=== PATIENT | male | born 1985 | race Caucasian/White ===

== ENCOUNTER 2023-09-28 13:01 | Emergency (ER) | payer BC, SELFPAY ==
--- NOTE | ~2023-09-28 | US_ITS ---
EXAMINATION: US VENOUS ULTRASOUND WITH DOPPLER LOWER EXTREMITY, LEFT CLINICAL INFORMATION: Calf pain and swelling COMPARISON: None available. TECHNIQUE: Ultrasound of the deep veins is performed from the hip to the calf with compression sonography and color and pulse Doppler assessment. Spectral analysis with color-flow imaging is performed. Technically difficult examination due to body habitus. FINDINGS: Left common femoral vein is patent. Partially occlusive thrombus identified from the proximal through the mid and distal femoral and popliteal veins. Flow is present in the posterior tibial vein where small amount of nonocclusive thrombus may also be present. Left peroneal vein was not visualized. Right common femoral vein was interrogated without abnormality. Left calf edema documented. No Dallas's cyst. Incidental note of 2.4 x 3.7 x 1.0 cm enlarged left groin lymph node. US/US venous duplex LE LT IMPRESSION: Positive deep venous thrombosis left proximal femoral through popliteal veins. Enlarged left groin lymph node. As the time of this dictation, PSA service contacted to alert referring physician as to findings.
[2023-09-28 13:17] VITALS: BP 122/94; PULSE 112; RESP 18; TEMP 36.5; O2SAT 99; BMI 52.0
--- NOTE | 2023-09-28 13:17 | ED.GENADULT ---
HPI - General Adult General Chief complaint: Extremity Injury, Lower Stated complaint: Possible blood clot (?) - sent by urgent care Time Seen by Provider: 09/28/23 13:46 Source: patient Mode of arrival: ambulatory Limitations: no limitations History of Present Illness HPI narrative: Patient is a 38-year-old male with history of hyperlipidemia, T2 dm diagnosed 3 weeks ago and started on metformin presenting to the emergency department with complaint of left lower leg and ankle swelling which he noted last night and left calf pain which began this morning. Patient reports that he did have some left knee pain several weeks ago while walking around at the [address] which has since resolved. He denies any chest pain or shortness of breath. Denies cigarette smoking but admits to daily marijuana smoking. Denies any recent extended travel. Denies recent surgery or immobilization. Reports calf pain increases with dorsiflexion. Denies any personal or family history of blood clots. MD complaint: Left lower leg pain and swelling Onset (ago): hour(s) Location: left and lower extremity Severity: moderate Quality: aching Pain Consistency: colicky Relieving factors: rest Exacerbating factors: movement Associated symptoms: denies other symptoms Treatments prior to arrival: none Related Data Previous Rx's Medication Instructions Recorded apixaban 5 mg (74 tabs) tablets in 5 mg PO BID dvt #74 ea 09/28/23 a dose pack ([employer] DVT-PE Treat 30D Start) Allergies Allergy/AdvReac Type Severity Reaction Status Date / Time No Known Allergies Allergy Mild NONE Unverified 03/13/20 14:47 Review of Systems Review of Systems: As per HPI. Yes all other systems are reviewed and are negative Constitutional: Constitutional: Reports as per HPI COUNTS INCLUDE 234 BEDS AT THE [facility] Social History Social History Advance Directives: No Advance Directives Information Provided: No Physical Exam ED Vital Signs: Vital Signs - 24 hr 09/28/23 13:17 Temperature 97.7 F Pulse Rate 112 H Respiratory Rate 18 Blood Pressure 122/94 H Pulse Oximetry 99 Oxygen Delivery Method Room Air BMI result Body Mass Index 52.0 Vital signs have been reviewed and appear to be correct. Blood pressure normal. Heart rate slightly tachycardic. Respiratory rate normal. Temperature normal. Oxygen saturation normal. Const General: cooperative, healthy appearing and no acute distress Orientation/consciousness: oriented to person, oriented to place, oriented to time and patient oriented x3 Limitations: no limitations HENMT Head: Yes normocephalic and Yes atraumatic Ears: external ears normal General nose exam: Normal external nose present Face and sinus: Yes face symmetric Mouth: oropharynx normal and moist mucous membranes Throat: Yes uvula midline Eyes Pupils: Equal, round and reactive pupils present Neck Neck: Yes normal visual inspection and Yes supple Resp Effort & Inspection: normal respiratory effort and able to speak in complete sentences Auscultation: clear to auscultation bilaterally Cardio Rate: regular rate Rhythm: regular rhythm Heart sounds: S1 normal heart sound present and S2 normal heart sound present GI Palpation (GI): Soft to palpation and nontender Auscultation: normoactive bowel sounds General: Yes no CVA tenderness Back/Spine/Pelvis Back: no CVA tenderness Skin General skin exam: elasticity normal and turgor normal Neuro General: oriented to person, oriented to place, oriented to time, patient oriented x3, moves all extremities, no focal motor deficits and CN's II-XI intact bilaterally Cranial nerves: Yes Equal, round and reactive pupils present Cognition (Neuro): normal cognition Extrem General: Yes full ROM, Yes no pedal edema and Yes no calf tenderness Left lower extremity: lower leg Details: localized swelling Location: of the distal lower leg; no erythema, no tenderness, no ecchymosis and no unusual warmth and foot (+Homans) Details: vascular exam Details: dorsalis pedis pulse present and posterior tibial pulse present Psych Mental Status: mental status grossly normal Affect: normal affect Thought process: Normal thought process present Course Course Course Narrative: This is an RME: Additional HPI, ROS, PE not included below will be deferred to primary provider. This is a [id number]-male, with a hx of hyperlipidemia and new diagnosis of diabetes, presenting to the emergency department with a complaint of left calf pain and swelling. Patient's girlfriend noticed swelling in his left ankle and calf last night. He woke up this morning with pain in his calf. No CP or SOB. No recent travels, surgeries, hospitalizations. No hx of blood clots in the past. +Homans sign, mild TTP in the left calf. Plan: Labs, US Medical Decision Making Medical Decision Making MDM Narrative: Patient is a 38-year-old male with history of hyperlipidemia, T2 dm diagnosed 3 weeks ago and started on metformin presenting to the emergency department with complaint of left lower leg and ankle swelling which he noted last night and left calf pain which began this morning. On exam patient is awake, A+Ox3, slightly tachycardic, VS otherwise WNL, afebrile, normal neurological exam without focal deficits, physical exam findings as above. Given reported symptoms and physical exam findings, initial differential includes DVT, calf strain. Labs notable for no leukocytosis, renal function within normal limits. Ultrasound notable for positive DVT left femoral through popliteal veins. My interpretation is in agreement with the radiologist's interpretation. Results discussed with patient and all questions answered. Will start patient on Eliquis 10 mg b.i.d. for 7 days, then 5 mg b.i.d.. Will refer to vascular for follow-up. Instructed patient to follow-up with his primary care provider. Return precautions discussed at bedside. Patient verbalized understanding of and agreement with plan. Differential Diagnosis Differential Diagnoses: The differential diagnosis associated with the presentation includes As per [facility] Admission/Observation Consideration of admission/observation: Escalation of care including admission/observation considered Patient would have been admitted to the hospital had their work up had any findings where hospital admission was appropriate and their clinical presentation warranted hospital admission. Lab Data [facility] Lab Attestation statement: I reviewed the patient's lab results. As per [facility]. 09/28/23 15:02 09/28/23 15:02 Labs: Lab Results 09/28/23 Range/Units 15:02 WBC 9.8 (4.8-10.8) X10*3/uL RBC 5.56 (4.60-5.80) X10*6/uL Hgb 15.0 (14.0-18.0) g/dl Hct 46.5 (42.0-52.0) % MCV 83.6 (80.0-98.0) fL MCH 27.0 (27.0-33.0) pg MCHC 32.3 (31.0-36.0) g/dl RDW 12.4 (11.0-16.0) % Plt Count 138 L (160-400) X10*3/uL MPV 11.3 (9.4-12.4) fL Immature Gran % (Auto) 0.3 (0.0-0.4) % Neut % (Auto) 66.0 (45-73) % Lymph % (Auto) 21.6 (20-40) % [place] % (Auto) 10.0 (2-11) % Eos % (Auto) 1.5 (0-4) % Baso % (Auto) 0.6 (0-2) % Lymph # (Auto) 2.1 (1.2-4.9) X10*3/uL [place] # (Auto) 1.0 (0.1-1.2) X10*3/uL Eos # (Auto) 0.2 (0.0-0.4) X10*3/uL Baso # (Auto) 0.1 (0.0-0.2) X10*3/uL Abs Immat Gran (auto) 0.03 (0.00-0.03) X10*3/uL Absolute Neuts (auto) 6.5 (2.0-8.3) x10*3/uL Absolute Nucleated RBC 0.000 (0.0-0.012) X10*3/uL Nucleated RBC % (auto) 0.0 (0.0-0.2) /100WBC PT 13.9 H (11.1-13.3) SEC INR 1.1 (0.9-1.1) APTT 34.0 (26.0-36.8) SEC Sodium 136 (135-145) mmol/L Potassium 4.1 (3.3-5.1) mmol/L Chloride 101 (96-108) mmol/L Carbon Dioxide 26 (22-29) mmol/L Anion Gap 13 (12-20) BUN 9 (9-16) mg/dL Creatinine 0.84 (0.5-1.4) mg/dL Estim Creat Clear Calc 203.0 Estimated GFR > 60 Random Glucose 131 H (60-115) mg/dL Calcium 9.8 (8.4-10.2) mg/dL Total Bilirubin 0.7 (0.0-1.0) mg/dL Direct Bilirubin 0.3 (0.0-0.5) mg/dL AST 21 (5-37) U/L ALT 22 (0-40) U/L Alkaline Phosphatase 87 (39-117) U/L B-Natriuretic Peptide < 10 (<100) pg/mL Total Protein 8.4 H (6.5-8.0) g/dL Albumin 3.8 (3.5-5.0) g/dL Independent Interpretation I performed an independent interpretation of an: Ultrasound Interpretation: +DVT left femoral through popliteal veins Radiology Impression Discussion of test interpretation with radiology: I have reviewed the radiologist's reading. Radiologist Impression: US/US venous duplex LE LT IMPRESSION: Positive deep venous thrombosis left proximal femoral through popliteal veins. Enlarged left groin lymph node. As the time of this dictation, PSA service contacted to alert referring physician as to findings. External Record Review External record reviewed: Inpatient record, Office record and Outpatient record Prescription Management I considered prescription management with: Other Discharge Plan Discharge Clinical Impression: Deep vein thrombosis (DVT) of left lower extremity Patient Disposition: Home, Self-Care Instructions: Apixaban (By mouth), Deep Vein Thrombosis (ED), Blood Thinners (ED), Deep Vein Thrombosis Prevention (ED) Additional Instructions: You were evaluated in the emergency department today for left leg pain and swelling. Your ultrasound showed evidence of a DVT, also known as a blood clot, in your left leg. You are being started on a medication called Eliquis. Please take this medication as prescribed. It is important that you follow-up with your primary care provider as soon as possible. You are also being referred to Dr. Aguero, the vascular doctor, please call his office tomorrow morning to schedule an appointment for follow-up. Return to the emergency department if you develop chest pain, palpitations, shortness of breath, difficulty breathing, change of color to your leg or foot, new weakness, numbness, tingling to your leg or foot or any other concerning symptom. Prescriptions: New Eliquis DVT-PE Treat 30D Start 5 mg (74 tabs) tablets,dose pack 5 mg PO BID Qty: 74 0RF Rx Instructions: 10mg BID x 7 days, then 5mg BID Referrals: Justus Aguero MD [Physician] -
[2023-09-28 15:07] LABS: MANUAL DIFF FLAG NO
[2023-09-28 15:11] LABS: Basophils Absolute Auto 0.1 X10*3/uL (0.0-0.2); Basophils Percent Auto 0.6 % (0-2); Eosinophils Absolute Auto 0.2 X10*3/uL (0.0-0.4); Eosinophils Percent Auto 1.5 % (0-4); Hematocrit 46.5 % (42.0-52.0); Imm Gran Abs Auto 0.03 X10*3/uL (0.00-0.03); Imm Gran Pct Auto 0.3 % (0.0-0.4); Lymphocytes Absolute Auto 2.1 X10*3/uL (1.2-4.9); Lymphocytes Percent Auto 21.6 % (20-40); Mean Corpuscular HGB Conc 32.3 g/dl (31.0-36.0); Mean Corpuscular Volume 83.6 fL (80.0-98.0); Mean Platelet Volume 11.3 fL (9.4-12.4); Neutrophils Absolute Auto 6.5 x10*3/uL (2.0-8.3); Platelet Count 138 X10*3/uL (160-400); Red Blood Count 5.56 X10*6/uL (4.60-5.80); Red Cell Distribution Width 12.4 % (11.0-16.0); White Blood Count 9.8 X10*3/uL (4.8-10.8)
[2023-09-28 15:19] LABS: INTERNATIONAL NORM RATIO 1.1 (0.9-1.1); Prothrombin Time 13.9 SEC (11.1-13.3)
[2023-09-28 15:23] LABS: Alanine Aminotransferase 22 U/L (0-40); Albumin Level 3.8 g/dL (3.5-5.0); Alkaline Phosphatase 87 U/L (39-117); Anion Gap 13 (12-20); Aspartate Amino Transferase 21 U/L (5-37); Bilirubin Direct 0.3 mg/dL (0.0-0.5); Bilirubin Total 0.7 mg/dL (0.0-1.0); Blood Urea Nitrogen 9 mg/dL (9-16); Calcium 9.8 mg/dL (8.4-10.2); Carbon Dioxide 26 mmol/L (22-29); Chloride 101 mmol/L (96-108); Estimated Glomerular Filt Rate > 60; Glucose Random 131 mg/dL (60-115); Potassium 4.1 mmol/L (3.3-5.1); Sodium 136 mmol/L (135-145); Total Protein 8.4 g/dL (6.5-8.0)
[2023-09-28 15:31] LABS: B Type Natriuretic Peptide < 10 pg/mL (<100)
== END 2023-09-28 16:25 | disposition home or self-care (01) ==
PROVIDERS: Physician Assistant Medical; Emergency Provider Emergency Medicine
DX: I82.412 Acute embolism and thrombosis of left femoral vein (principal); I82.432 Acute embolism and thrombosis of left popliteal vein; E11.9 Type 2 diabetes mellitus without complications; Z79.84 Long term (current) use of oral hypoglycemic drugs
CPT/HCPCS: 36415; 80048; 80076; 83880; 85025; 85610; 85730; 93971; 99281; 99284

== ENCOUNTER 2023-12-08 16:09 | Outpatient (AMB) | payer BC, SELFPAY ==
--- NOTE | 2023-12-08 16:55 | MHC.AMDMED ---
Intake Intake Visit Reasons: T2DM Mortician Investigator Required: No Accompanied by: Self / Same As Patient Allergies No Known Allergies Allergy (Mild, Verified 11/30/23 13:41) NONE HPI Comprehensive Diabetes Asmnt Most Recent Diabetes Results: Creatinine 0.84 mg/dL (0.5-1.4) 09/28/23 Blood Urea Nitrogen 9 mg/dL (9-16) 09/28/23 Sodium 136 mmol/L (135-145) 09/28/23 Potassium 4.1 mmol/L (3.3-5.1) 09/28/23 Chloride 101 mmol/L (96-108) 09/28/23 Carbon Dioxide 26 mmol/L (22-29) 09/28/23 Calcium 9.8 mg/dL (8.4-10.2) 09/28/23 AST 21 U/L (5-37) 09/28/23 ALT 22 U/L (0-40) 09/28/23 Total Protein 8.4 g/dL (6.5-8.0) H 09/28/23 Albumin 3.8 g/dL (3.5-5.0) 09/28/23 PFSH Medical History (Updated 11/30/23 @ 14:39 by Ashley Brown PA-C) Elevated homocysteine Right leg DVT Dyslipidemia Uncontrolled type 2 diabetes mellitus with hyperglycemia Family History (Updated 11/30/23 @ 13:48 by Estefania Diop CMA) Father Brain cancer Throat cancer Diabetes Social History (Updated 11/30/23 @ 13:44 by Estefania Diop CMA) Housing: House Housing Other:: 2 family house Patient Tobacco Use Status: Never used Tobacco e-Cigarette/Vaping Use: Never Used Second Hand Smoke Exposure: Yes service: No Current occupational status: employed 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 2= needs review? 3= comprehend keep point? 4= demonstrates understanding/ competent? NC= Not Covered Topics Learning Objective: Initial visit Initial or post srvc Initial or post srvc Initial or post srvc Initial or post srvc Initial or post srvc Post srvc Comments Pre Edu-assessment/plan Outcome or reassess Outcome or reassess Outcome or reassess Outcome or reassess Outcome or reassess Outcome or reassess Diabetes pathophysiology 1 Healthy eating 1 Being active 1 Taking medication 1 Monitoring glucose 1 Acute complication Chronic complicated Lifestyle and healthy coping Diabetes distress in support ?Diabetes pathophysiology: ?Defined diabetes med identify own type of diabetes; list 3 options for treating diabetes Healthy eating: ?Described effect of type, amount and ?timing of food on blood glucose; list 3 methods for planning meal Being active: ?State effect of exercise on blood glucose level Taking medication: ?State effect of diabetes medications on diabetes; name diabetes medications taking, action and side effects Monitoring glucose: ?Identify recommended blood glucose targets and personal target Acute complication: ?List symptoms and treatment of hyper and hypoglycemia, DKA, sick day guidelines and guidelines for severe weather or situations of crisis and diabetes supply manage Chronic complication: ?To find the relationship of blood glucose levels to long-term complications of diabetes in screening and preventative measures Lifestyle and healthy coping: ?Described lifestyle and healthy coping strategies to rule out diabetes self-management Diabetes to stress and support: ?Recognize Diabetes to stress and be able to identified support options Learning objectives: The patient was provided with verbal and written education on the following topics as outlined below. The patient met all learning objectives and was able to verbalize understanding and provide teach back of education topics discussed . The patient was provided with the opportunity to ask questions and all questions were answered. Patient Assessment Assess patient education level/literacy/barriers, patient identified foods on carbohydrate list that are currently in his meal plan Patient questions/concerns patient diagnosed with diabetes approximately 3 months ago, with an A1c of 8.3 %. Patient just recently got Livongo meter, recommended to patient he test twice a day Patient is currently on metformin 1000 mg b.i.d. And patient has taken his 1st shot of Mounjaro 2.5 mg Patient denies GI side effects from either metformin or Mounjaro What is Diabetes? Pathophysiology How the body produces and uses insulin Identify type of DM Risk factors Signs of Diabetes Brief overview of Diabetes Management Monitoring blood sugar Following a meal plan Regular exercise Maintaining a healthy weight Taking medication as needed Members of the care team (PCP, RN, MA, RD, CDE, senior account clerk) Blood glucose monitoring When/how often to test Target blood sugar ranges Introduction to Nutrition Importance of healthy diet in managing DM Diet is personalized to individual preference Review patient?s regular diet/food preferences Who prepares meals/does food shopping/ Dining out?/ Barriers? How diet effects glucose Eating 3 balanced meals a day with small, healthy snacks between meals Review food groups Carbohydrates: What is a carbohydrate/Which food/food groups are considered carbohydrates Effect of carbohydrates on blood glucose Portion sizes Reading food labels Basic carb counting (if applicable per nursing assessment) Plate method Meal planning Recommendations: Follow plate method, consistent carbs and read nutritional labels. Smart Goal: Will identify foods in his diet that contain carbohydrates Educational Materials: The patient was provided with the following written educational materials: Planning Healthy Meals Handout Patient Response to instructions: Comprehension of Instructions: Fair Readiness to make changes: Contemplation How confident they feel about making changes: Positive Portions of this note were created using voice recognition software, please excuse any words or phrases that may have been misinterpreted. Patient Instructions: Include regular daily activity. ADA recommends 30 minutes of exercise 5 days a week. Weight loss talk to PCP or Talent Acquisition Assistant before starting new plan. Test blood sugar as directed; Fasting and 2hpp largest meal. Watch trends in results. Utilize results and to assess how food, physical activity and medications affect blood sugar results. Bring glucometer or CGM to next visit. Be knowledgeable about diabetes medication, its action, side effects, efficacy, toxicity, prescribed dosage, appropriate timing and frequency of administration, effect of missed and delayed doses and instructions for storage, travel and safety. Problem solving techniques to monitor hypo/hyperglycemia episodes and treatments. Reduce risk reduction behaviors, smoking cessation, regular eye, foot and dental examinations. Coding Level of Care Code Est Pt Level 1 (62638) Diagnoses Uncontrolled type 2 diabetes mellitus with hyperglycemia E11.65
== END 2023-12-08 16:57 | disposition home or self-care (01) ==
PROVIDERS: PCP Physician Assistant; Visit Provider Registered Nurse Diabetes Educator
DX: E11.65 Type 2 diabetes mellitus with hyperglycemia (principal)

== ENCOUNTER → 2023-12-08 16:09 | Outpatient (BNVA) | payer BC, SELFPAY | PROVIDERS: PCP Physician Assistant; Visit Provider Registered Nurse Diabetes Educator | DX: E11.65 Type 2 diabetes mellitus with hyperglycemia (principal) | CPT/HCPCS: 99211 ==

== ENCOUNTER → 2023-12-16 09:12 | Outpatient (BNV) | payer BC, SELFPAY | PROVIDERS: PCP Physician Assistant; Referring Provider Physician Assistant; Visit Provider Internal Medicine | DX: I82.401 Acute embolism and thrombosis of unspecified deep veins of right lower extremity (principal) | CPT/HCPCS: 99204; G2211 ==

== ENCOUNTER 2024-01-05 12:48 | Outpatient (AMB) | payer BC, SELFPAY ==
--- NOTE | 2024-01-05 13:00 | A.OFFPC_ITS ---
Vital Signs 01/05/24 13:08 Height 6 ft 1 in Weight 372 lb 6 oz BMI 49.1 BP 104/86 Blood Pressure Location Rt brachial Position Sitting Pulse 75 Pulse Source Pulse Oximeter Pulse Oximetry (%) 96 Oxygen Delivery Method Room Air Intake Visit Reasons: dm f/u Intake Note: Diabetes follow up Bicycle Service Technician Required: No Allergies No Known Allergies Allergy (Mild, Verified 01/05/24 13:03) NONE Medication List - Last Reconciled 01/05/24 by Ashley Brown PA-C apixaban (Eliquis) 5 mg PO BID blood sugar diagnostic (FreeStyle Lite Strips) use daily As directed to check blood glucose blood-glucose meter (FreeStyle Lite Meter kit) Use daily As directed to check blood glucose metformin 1,000 mg PO BID omeprazole 20 mg PO DAILY rosuvastatin (Crestor) 5 mg PO DAILY tirzepatide (Mounjaro) 2.5 mg (0.5 mL) subcut QWEEK 4 weeks Tobacco use date assessed: 11/30/23 Dental Screening Dental Screen Date: 11/30/23 HPI dm f/u HPI Details Patient is a 38-year-old male who presents today for a follow up. He is relatively new to me. Endo: He has a relatively new diagnosis as well of type 2 diabetes. He is on metformin 1000 mg twice a day. At our last visit I started him on Mounjaro 2.5 mg. His A1c today in the office is 6.7. No longer getting blurry vision. Saw the eye doc and states was told to use lubricating eye drops. He states he was told use baby shampoo on eyelids and since starting this he has been feeling fine. No polydipsia or polyuria. No hypoglycemic events. BS have been 97-160. Heme-Onc: Following with Hematology for right leg DVT. 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 Aquilino Hargrove, Xuan Monroe, Leonardo Anaya and colleagues, with an educational wilmar from [employer]. Physical exam (Primary Care) Vital Signs: Last Vital Signs Pulse 75 01/05/24 13:08 BP 104/86 01/05/24 13:08 Pulse Ox 96 01/05/24 13:08 Oxygen Delivery Method Room Air 01/05/24 13:08 BMI result Body Mass Index 49.1 Tobacco/Smoking Status: Tobacco use Status Tobacco use date assessed 11/30/23 01/05/24 13:00 Patient Tobacco Use Status Never used Tobacco 01/05/24 13:00 e-Cigarette/Vaping Use Never Used 01/05/24 13:00 Const Orientation/consciousness: patient oriented x3 Neck Neck: Yes no lymphadenopathy Thyroid: Thyroid normal Carotids: no bruits Resp Auscultation: clear to auscultation bilaterally Cardio Rate: regular rate Rhythm: regular rhythm Heart sounds: S1 normal heart sound present and S2 normal heart sound present Peripheral pulses: dorsalis pedis present Skin General skin exam: no rashes or lesions noted Neuro General: patient oriented x3, gait normal, no focal motor deficits, normal sensation to monofilament and deep tendon reflexes 2+ bilaterally Extrem General: Yes normal to inspection Results Reviewed Results Reviewed: Laboratory Tests 09/28/23 15:02 Sodium 136 Potassium 4.1 Chloride 101 Carbon Dioxide 26 Anion Gap 13 BUN 9 Creatinine 0.84 Estim Creat Clear Calc 203.0 Estimated GFR > 60 Random Glucose 131 H Calcium 9.8 AST 21 ALT 22 Total Protein 8.4 H Assessment and Plan Assessment & Plan (1) Uncontrolled type 2 diabetes mellitus with hyperglycemia: Code(s): E11.65 - Type 2 diabetes mellitus with hyperglycemia Plan: tolerating mounjaro well. increased dosage. continue metformin. (2) Dyslipidemia: Code(s): E78.5 - Hyperlipidemia, unspecified Plan: lipids ordered Medications: New tirzepatide (Mounjaro) 5 mg (0.5 mL) subcut QWEEK 2 mL 3RF Discontinued tirzepatide (Mounjaro) Discontinued Reason: Doctor's Order 2.5 mg (0.5 mL) subcut QWEEK 4 weeks 2 mL 3RF Coding Level of Care Code Est Pt Level 4 (73491) Complex EM visit Add On G2211 Diagnoses Uncontrolled type 2 diabetes mellitus with hyperglycemia E11.65 Dyslipidemia E78.5
[2024-01-05 13:08] VITALS: BP 104/86; PULSE 75; O2SAT 96; BMI 49.1
== END 2024-01-05 13:42 | disposition home or self-care (01) ==
PROVIDERS: PCP Physician Assistant; Visit Provider Physician Assistant
DX: E11.65 Type 2 diabetes mellitus with hyperglycemia (principal); E78.5 Hyperlipidemia, unspecified
CPT/HCPCS: 83036; 99214

== ENCOUNTER 2024-01-09 16:23 | Outpatient (AMB) | payer BC, SELFPAY ==
--- NOTE | 2024-01-09 16:24 | A.OFFVIS_ITS ---
Intake Intake Visit Reasons: 60 min/LVM Boat Captain Required: No Accompanied by: Self / Same As Patient Allergies No Known Allergies Allergy (Mild, Verified 01/05/24 13:03) NONE HPI Comprehensive Diabetes Asmnt Most Recent Diabetes Results: Creatinine 0.84 mg/dL (0.5-1.4) 09/28/23 Blood Urea Nitrogen 9 mg/dL (9-16) 09/28/23 Sodium 136 mmol/L (135-145) 09/28/23 Potassium 4.1 mmol/L (3.3-5.1) 09/28/23 Chloride 101 mmol/L (96-108) 09/28/23 Carbon Dioxide 26 mmol/L (22-29) 09/28/23 Calcium 9.8 mg/dL (8.4-10.2) 09/28/23 AST 21 U/L (5-37) 09/28/23 ALT 22 U/L (0-40) 09/28/23 Total Protein 8.4 g/dL (6.5-8.0) H 09/28/23 Albumin 3.8 g/dL (3.5-5.0) 09/28/23 [facility] Medical History (Updated 12/16/23 @ 09:42 by Leandra Dasilva MD) Elevated homocysteine Right leg DVT Dyslipidemia Uncontrolled type 2 diabetes mellitus with hyperglycemia Family History Father Brain cancer Throat cancer Diabetes Social History (Updated 12/16/23 @ 09:22 by Brock Corbett) Household Members: Significant Other Housing: House Housing Other:: 2 family house Patient Tobacco Use Status: Never used Tobacco e-Cigarette/Vaping Use: Never Used Second Hand Smoke Exposure: Yes Substance Use Type: Marijuana Current occupational status: employed 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 2= needs review? 3= comprehend keep point? 4= demonstrates understanding/ competent? NC= Not Covered Topics Learning Objective: Initial visit Initial or post srvc Initial or post srvc Initial or post srvc Initial or post srvc Initial or post srvc Post srvc Comments Pre Edu-assessment/plan Outcome or reassess Outcome or reassess Outcome or reassess Outcome or reassess Outcome or reassess Outcome or reassess Diabetes pathophysiology 1 3 Healthy eating 1 3 Being active 1 3 Taking medication 1 3 Monitoring glucose 1 3 Acute complication 2 Chronic complicated 2 Lifestyle and healthy coping 2 Diabetes distress in support 2 ?Diabetes pathophysiology: ?Defined diabetes med identify own type of diabetes; list 3 options for treating diabetes Healthy eating: ?Described effect of type, amount and ?timing of food on blood glucose; list 3 methods for planning meal Being active: ?State effect of exercise on blood glucose level Taking medication: ?State effect of diabetes medications on diabetes; name diabetes medications taking, action and side effects Monitoring glucose: ?Identify recommended blood glucose targets and personal target Acute complication: ?List symptoms and treatment of hyper and hypoglycemia, DKA, sick day guidelines and guidelines for severe weather or situations of crisis and diabetes supply manage Chronic complication: ?To find the relationship of blood glucose levels to long- term complications of diabetes in screening and preventative measures Lifestyle and healthy coping: ?Described lifestyle and healthy coping strategies to rule out diabetes self-management Diabetes to stress and support: ?Recognize Diabetes to stress and be able to identified support options Learning objectives: The patient was provided with verbal and written education on the following topics as outlined below. Assess patient education level/literacy/barriers Patient questions/concerns patient's A1c has improved to 6.7% on 01/05/2024 from previous A1c of 8.2% Patient reports he has significantly reduced carbohydrate portions, this has been helped by starting on Mounjaro 5 mg Patient does report after increase in metformin he began to experience frequent diarrhea, reports he has stopped metformin completely he did tell his PCP about stopping this medication The patient met all learning objectives and was able to verbalize understanding and provide teach back of education topics discussed . The patient was provided with the opportunity to ask questions and all questions were answered. Topics covered in today?s session included: Medications (If applicable) * Name of medication? * Dosing/administration instructions? * Mechanism of action? * Potential side effects? * Potential adverse reaction and appropriate treatment? * Review onset, peak, duration Assess for concerns re: insurance coverage, cost, barriers to compliance Insulin/Injectables (If applicable) * Storage/care of insulin?? * Injection sites? * Site rotation? * Onset, peak, duration * Drawing up insulin? * Injecting insulin/other injectables? * Sharps disposal Continuous blood glucose monitoring (if applicable) Hypoglycemia and Hyperglycemia * Signs and symptoms? * Causes?? * Treatment? * Preventing hypoglycemia? * When to seek medical attention * Blood glucose targets and how you feel when your blood glucose is in and out of your target ranges. * Monitoring and knowing your A1C. * What can make blood glucose go up and down and preventing high and low blood glucose. * Review of blood sugar targets in expected goal range and outside of expected goal range. * Problem solving and preventing hyper/hypoglycemia. * Sick day management of diabetes. * Using blood sugar results in decision making process in managing diabetes. ?Patient was receptive to information provided and participated in the discussion. Asked?appropriate questions and demonstrated good understanding of the topics discussed.? ? Educational Materials: The patient was provided with the following written educational materials: Target Goal and hypoglycemia handouts Smart Goal Assessment:? Patient will identify foods in current diet which contain carbohydrate Pt met goal more than 75% New Smart Goal:Pt will increase Physical activity to 10 minutes 5 days a week Patient Response to instructions: Comprehension of Instructions: Good Readiness to make changes:? action How confident they feel about making changes:Positive Portions of this note were created using voice recognition software, please excuse any words or phrases that may have been misinterpreted. 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
== END 2024-01-10 08:07 | disposition home or self-care (01) ==
PROVIDERS: PCP Physician Assistant; Visit Provider Registered Nurse Diabetes Educator
DX: E11.65 Type 2 diabetes mellitus with hyperglycemia (principal)

== ENCOUNTER → 2024-01-09 16:23 | Outpatient (BNVA) | payer BC, SELFPAY | PROVIDERS: PCP Physician Assistant; Visit Provider Registered Nurse Diabetes Educator | DX: E11.65 Type 2 diabetes mellitus with hyperglycemia (principal) | CPT/HCPCS: 99211 ==

== ENCOUNTER 2024-04-23 15:48 | Outpatient (AMB) | payer BC, SELFPAY ==
--- NOTE | 2024-04-23 16:03 | A.OFFVIS_ITS ---
Intake Intake Visit Reasons: DM 60 min-conf Route Cdl Driver Required: No Accompanied by: Self / Same As Patient Allergies No Known Allergies Allergy (Mild, Verified 01/05/24 13:03) NONE HPI Comprehensive Diabetes Asmnt Most Recent Diabetes Results: Creatinine 0.84 mg/dL (0.5-1.4) 09/28/23 Blood Urea Nitrogen 9 mg/dL (9-16) 09/28/23 Sodium 136 mmol/L (135-145) 09/28/23 Potassium 4.1 mmol/L (3.3-5.1) 09/28/23 Chloride 101 mmol/L (96-108) 09/28/23 Carbon Dioxide 26 mmol/L (22-29) 09/28/23 Calcium 9.8 mg/dL (8.4-10.2) 09/28/23 AST 21 U/L (5-37) 09/28/23 ALT 22 U/L (0-40) 09/28/23 Total Protein 8.4 g/dL (6.5-8.0) H 09/28/23 Albumin 3.8 g/dL (3.5-5.0) 09/28/23 [facility] Medical History (Updated 12/16/23 @ 09:42 by Leandra Dasilva MD) Elevated homocysteine Right leg DVT Dyslipidemia Uncontrolled type 2 diabetes mellitus with hyperglycemia Family History Father Brain cancer Throat cancer Diabetes Social History (Updated 12/16/23 @ 09:22 by Brock Corbett) Household Members: Significant Other Housing: House Housing Other:: 2 family house Patient Tobacco Use Status: Never used Tobacco e-Cigarette/Vaping Use: Never Used Second Hand Smoke Exposure: Yes Substance Use Type: Marijuana Current occupational status: employed 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 The patient met all learning objectives and was able to verbalize understanding and provide teach back of education topics discussed . The patient was provided with the opportunity to ask questions and all questions were answered. Patient Assessment Assess patient education level/literacy/barriers Patient questions/concerns, patient reports he has lost approximately 75 lb, since his diagnosis of type 2 diabetes. Reports he has changed physical activity, eating habits Has stopped taking metformin due to nausea Can you continues to take Mounjaro 5 mg weekly, reports he is not interested in increasing dose at this time Instructed patient to discuss with PA at next visit Patient is due for next A1c Exercise Medical clearance Effect of exercise on blood sugar Start slowly and gradually increase pace/duration over time Goal amount of exercise Checking blood glucose/have a source of carbs with you Medications (If applicable) * Name of medication * Dosing/administration instructions * Mechanism of action * Potential side effects * Potential adverse reaction and appropriate treatment * Review onset, peak, duration Assess for concerns re: insurance coverage, cost, barriers to compliance Insulin/Injectables (If applicable) * Storage/care of insulin * Injection sites * Site rotation * Onset, peak, duration * Drawing up insulin * Injecting insulin/other injectables * Sharps disposal Continuous blood glucose monitoring (if applicable) Hypoglycemia and Hyperglycemia * Signs and symptoms * Causes * Treatment * Preventing hypoglycemia * When to seek medical attention Medical alert bracelet Lifestyle * Work * Travel * Stress management * Problem solving Know your goals * A1C * Blood sugar targets * Blood pressure * Cholesterol/LDL Urine microalbumin Smart Goal Assessment: Patient has increased physical activity daily Pt met goal 100% Educational Materials: The patient was provided with the following written educational materials: ADCES 7 Healthy Behaviors Reducing Risks handout Patient Response to instructions: Comprehension of Instructions: very Well Readiness to make changes: action How confident they feel about making changes: positve Letter of completion of diabetes Education program will be sent to referring provider Portions of this note were created using voice recognition software, please excuse any words or phrases that may have been misinterpreted. Patient Instructions: Include regular daily activity. ADA recommends 30 minutes of exercise 5 days a week. Weight loss talk to PCP or Senior Web Applications Developer before starting new plan. Test blood sugar as directed; Fasting and 2hpp largest meal. Watch trends in results. Utilize results and to assess how food, physical activity and medications affect blood sugar results. Bring glucometer or CGM to next visit. Be knowledgeable about diabetes medication, its action, side effects, efficacy, toxicity, prescribed dosage, appropriate timing and frequency of administration, effect of missed and delayed doses and instructions for storage, travel and safety. Problem solving techniques to monitor hypo/hyperglycemia episodes and treatments. Reduce risk reduction behaviors, smoking cessation, regular eye, foot and dental examinations. Coding Level of Care Code Est Pt Level 1 (82863) Diagnoses Uncontrolled type 2 diabetes mellitus with hyperglycemia E11.65
== END 2024-04-23 16:18 | disposition home or self-care (01) ==
LOC: HO.ENCR 15:48
PROVIDERS: PCP Physician Assistant; Visit Provider Registered Nurse Diabetes Educator
DX: E11.65 Type 2 diabetes mellitus with hyperglycemia (principal)

== ENCOUNTER → 2024-04-23 15:48 | Outpatient (BNVA) | payer BC, SELFPAY | PROVIDERS: PCP Physician Assistant; Visit Provider Registered Nurse Diabetes Educator | DX: E11.65 Type 2 diabetes mellitus with hyperglycemia (principal) | CPT/HCPCS: 99211 ==

== ENCOUNTER 2024-04-26 13:42 | Outpatient (AMB) | payer BC, SELFPAY ==
--- NOTE | 2024-04-26 13:51 | MHC.PC.OV ---
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: No Allergies No Known Allergies Allergy (Mild, Verified 04/26/24 14:00) NONE Medication List - Last Reconciled 04/26/24 by Ashley Brown PA-C apixaban (Eliquis) 5 mg PO BID blood sugar diagnostic (FreeStyle Lite Strips) use daily As directed to check blood glucose blood-glucose meter (FreeStyle Lite Meter kit) Use daily As directed to check blood glucose omeprazole 20 mg PO DAILY rosuvastatin (Crestor) 5 mg PO DAILY tirzepatide (Mounjaro) 5 mg (0.5 mL) subcut QWEEK Tobacco use date assessed: 11/30/23 Dental Screening Dental Screen Date: 11/30/23 HPI Rsched from 04/12 -3M Follow Up HPI Details Patient is a 39-year-old male who presents today for a follow up. Endo: He has a relatively new diagnosis as well of type 2 diabetes (within the year). At our last visit I increased his Mounjaro to 5 mg. His A1c today in the office is 5.6. He is doing very well he states. His blood sugars have been around 100 or less. He has lost about 70 lb. He states that since the diagnosis of diabetes and being on Mounjaro he is taking his diet and weight loss very seriously. He is motivated and wants to continue losing weight and get down into the 200s. He is feeling significantly better and more energetic. He does sometimes get a little constipated with the Mounjaro. -he has followed with Ophthalmology -he is intolerant of metformin Heme-Onc: Following with Hematology for right leg DVT. 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 occupational exposures/hazards: No Gender identity: Male Cognitive needs: No Hearing needs: No Vision needs: Yes (glasses) Questionnaire Thrive Questionnaire Date Thrive assessed: 04/26/24 I am a: Patient What is your living situation today?: I have a steady place to live Within the past 12 months, did the food you bought not last and you didn't have the money to get more?: I choose not to answer this question Within the past 12 months, did you worry whether your food would run out before you got money to buy more?: Never true Do you have trouble paying for medicines?: No Do you have trouble getting transportation to medical appointments?: No Do you have trouble paying your heating and electricity bill?: No Do you have trouble taking care of your child, family member or friend?: No Do you have trouble with day-to-day activities such as bathing, preparing meals, shopping, managing finances, etc.?: No Are you currently unemployed and looking for a job?: No Are you interested in more education?: Yes Please select the resources that you would like help with: None Currently or been in a relationship where the following occur: No concerns reported THRIVE Score: 0 AUDIT C Alcohol Use Questionnaire (AUDIT-C) 2. How many drinks containing alcohol do you have on a typical day when you are drinking?: 1 or 2 Total Score: 0 MARIO-7 AMB Questionnaire MARIO-7 Date MARIO - 7 assessed: 11/30/23 Feeling nervous, anxious, or on edge: 1 = Several days Not being able to stop or control worryin = Several days Worrying too much about different things: 1 = Several days Trouble relaxin = Not at all Being so restless that it is hard to sit still: 0 = Not at all Becoming easily annoyed or irritable: 0 = Not at all Feeling afraid as if something awful might happen: 0 = Not at all Total MARIO-7 score (0-4 normal; 5-9 mild; 10-14 moderate; 15-21 severe): 3 Source: Developed by Drs. Aquilino Hargrove, Xuan Monroe, Leonardo Anaya and colleagues, with an educational wilmar from [email or web address] Physical exam (Primary Care) Vital Signs: Last Vital Signs Pulse 90 04/26/24 14:00 BP 108/60 04/26/24 14:00 Pulse Ox 95 04/26/24 14:00 Oxygen Delivery Method Room Air 04/26/24 14:00 BMI result Body Mass Index 41.9 Tobacco/Smoking Status: Tobacco use Status Tobacco use date assessed 11/30/23 04/26/24 13:52 Patient Tobacco Use Status Never used Tobacco 04/26/24 13:52 e-Cigarette/Vaping Use Never Used 04/26/24 13:52 Thrive Assessment: Date of Thrive Assessment Date Thrive assessed 04/26/24 04/26/24 13:52 Currently or been in a relationship where the following occur: No concerns reported Const Orientation/consciousness: patient oriented x3 Neck Neck: Yes no lymphadenopathy Thyroid: Thyroid normal Carotids: no bruits Resp Auscultation: clear to auscultation bilaterally Cardio Rate: regular rate Rhythm: regular rhythm Heart sounds: S1 normal heart sound present and S2 normal heart sound present Peripheral pulses: dorsalis pedis present Neuro General: patient oriented x3, gait normal and no focal motor deficits Extrem General: Yes normal to inspection Results AMB Hemoglobin A1c AMB Hemoglobin A1c 5.6 % Last Edit by Estefania Diop CMA on 04/26/24 14:28 Results Reviewed Results Reviewed: Laboratory Last Values Hgb A1c (Clinic) 5.6 % (4.0-6.0) 04/26/24 14:27 Coding Level of Care Code Est Pt Level 4 (27893) Complex EM visit Add On G2211 Diagnoses Controlled type 2 diabetes mellitus without complication, without long-term current use of insulin E11.9 Diabetes mellitus usp insulin use: without termite renewal inspector use Dyslipidemia E78.5 Severe obesity (BMI >= 40) E66.01 Assessment & Plan Assessment & Plan (1) Controlled type 2 diabetes mellitus without complication: Code(s): E11.9 - Type 2 diabetes mellitus without complications Category: Medical Qualifiers: Diabetes mellitus usp insulin use: without usp use Qualified Code(s): E11.9 - Type 2 diabetes mellitus without complications Plan: Continue current regimen. Doing well. Continuing to lose weight. Reminded patient to complete labs (2) Dyslipidemia: Code(s): E78.5 - Hyperlipidemia, unspecified Category: Medical Plan: Continue Crestor. Advised him to complete his labs. (3) Severe obesity (BMI >= 40): Code(s): E66.01 - Morbid (severe) obesity due to excess calories Category: Medical Plan: Congratulated him on this excessive his weight loss. We will follow back up in 3 months. Sooner if needed. Orders: Orders AMB Hemoglobin A1c 04/26/24 E11.65 - Type 2 diabetes mellitus with hyperglycemia Medications: New polyethylene glycol 3350 (Miralax) 17 grams PO DAILY 510 grams 1RF
[2024-04-26 14:00] VITALS: BP 108/60; PULSE 90; O2SAT 95; BMI 41.9
== END 2024-04-26 14:27 | disposition home or self-care (01) ==
LOC: HO.HMCFM 13:43
PROVIDERS: PCP Physician Assistant; Visit Provider Physician Assistant
DX: E11.69 Type 2 diabetes mellitus with other specified complication (principal); E78.5 Hyperlipidemia, unspecified; E66.01 Morbid (severe) obesity due to excess calories; Z68.41 Body mass index [BMI] 40.0-44.9, adult

== ENCOUNTER → 2024-04-26 13:42 | Outpatient (BNVA) | payer BC, SELFPAY | PROVIDERS: PCP Physician Assistant; Visit Provider Physician Assistant | DX: E11.9 Type 2 diabetes mellitus without complications (principal); E78.5 Hyperlipidemia, unspecified; E66.01 Morbid (severe) obesity due to excess calories; Z68.41 Body mass index [BMI] 40.0-44.9, adult | CPT/HCPCS: 83036 ==

== ENCOUNTER → 2024-08-01 14:01 | Outpatient (BNVA) | payer BC, SELFPAY | PROVIDERS: PCP Physician Assistant; Visit Provider Physician Assistant | DX: E11.9 Type 2 diabetes mellitus without complications (principal) | CPT/HCPCS: 83036 ==

== ENCOUNTER 2024-09-05 20:41 | Emergency (ER) | payer BC, SELFPAY ==
[2024-09-05 20:45] VITALS: BP 136/94; PULSE 95; RESP 18; TEMP 36.6; O2SAT 98; BMI 41.2
--- NOTE | 2024-09-05 20:46 | ED_ITS ---
HPI - General Adult General Chief complaint: General Medical Stated complaint: diabetic, light headed, left shoulder pain and num Time Seen by Provider: 09/06/24 01:35 Source: patient Mode of arrival: ambulatory Limitations: no limitations History of Present Illness ED Provider: Dr. Anca Hanna HPI narrative: Patient comes to the emergency room complaining of a sensation of heavy flushing, heavy feeling. Patient states that he did not feel lightheaded, no room spinning, no chest pain or shortness of breath. Patient states it lasted for a few seconds. Initially patient states that he thought it was his blood sugar that was low. Patient states that since he arrived to emergency room he has been asymptomatic. Related Data Home Medications ?Medication ?Instructions ?Recorded ?Confirmed omeprazole 20 mg tablet,delayed 20 mg PO DAILY 11/30/23 06/15/24 release rosuvastatin 5 mg tablet (Crestor) 5 mg PO DAILY 11/30/23 06/15/24 Previous Rx's ?Medication ?Instructions ?Recorded blood sugar diagnostic (FreeStyle #100 ea 11/30/23 Lite Strips) blood-glucose meter (FreeStyle #1 ea 11/30/23 Lite Meter kit) apixaban 5 mg tablet (Eliquis) 5 mg PO BID #60 tabs 08/30/24 tirzepatide 5 mg/0.5 mL 5 mg (0.5 mL) subcut QWEEK #2 mL 08/30/24 subcutaneous pen injector (Mounjaro) Allergies Allergy/AdvReac Type Severity Reaction Status Date / Time No Known Allergies Allergy Mild NONE Verified 09/05/24 20:48 Review of Systems 2 Review of Systems: Constitutional : No Weight loss, No Fever, No Chills, No Night Sweats, No Fatigue, No Malaise , complaining of a flushing sensation which self-resolved ENT/Mouth : No Hearing loss, No Ear Pain, No Nasal Congestion, No Sinus Pain, No Hoarseness, No sore throat, No Rhinorrhea, No Swallowing Difficulty Eyes: No Eye Pain, No Swelling, No Redness, No Foreign Body, No Discharge, No Vision Changes Cardiovascular : No Chest Pain, No SOB, No Dyspnea on Exertion, No Orthopnea, No Edema, No Palpitations Respiratory : No Cough, No Sputum, No Wheezing, No Smoke Exposure, No Dyspnea Gastrointestinal : No Nausea, No Vomiting, No Diarrhea, No Constipation, No abdominal Pain, No Hematochezia, No Melena Genitourinary : no irregular bleeding, No Dysuria, No Urinary Frequency, No Hematuria, No Urinary Incontinence, No Urgency, No Flank Pain, No Urinary Flow Changes, No Hesitancy Musculoskeletal : No joint pain, No Myalgias, No Joint Swelling Skin : No Skin Lesions, No rash Neuro : No Weakness, No Numbness, No Paresthesias, No Loss of Consciousness, No Dizziness, No Headache Psych : No Anxiety/Panic, No Depression, No SI/HI/AH/VH, No Social Issues, Heme/Lymph: No Bruising, No Bleeding,No Lymphadenopathy Endocrine : No Polyuria, No Polydipsia, No Temperature Intolerance [facility] Past Medical History Medical History Elevated homocysteine Right leg DVT Dyslipidemia Uncontrolled type 2 diabetes mellitus with hyperglycemia Family History Family History Father Brain cancer Throat cancer Diabetes Social History Social History Household Members: Significant Other Housing: House Housing Other:: 2 family house Alcohol intake: current Alcohol intake frequency: holidays/special occasions only Patient Tobacco Use Status: Never used Tobacco Smoked in Last 30 Days: No e-Cigarette/Vaping Use: Never Used Second Hand Smoke Exposure: Yes Use of substances other than those prescribed or required for medical reasons: Yes Substance Use Type: Marijuana Advance Directives: No Advance Directives Information Provided: Yes Do you have a plan to hurt others: No Plan Current occupational status: employed Current occupation: [employer] to [employer] Current occupational exposures/hazards: No Gender identity: Male Cognitive needs: No Hearing needs: No Vision needs: Yes (glasses) Physical Exam ED Vital Signs: Vital Signs - 24 hr 09/05/24 20:45 09/05/24 23:57 09/06/24 02:09 Temperature 98 F 97.9 F Pulse Rate 95 87 63 Respiratory Rate 18 16 Blood Pressure 136/94 H 113/76 110/75 Pulse Oximetry 98 97 Oxygen Delivery Method Room Air Room Air 09/06/24 02:10 09/06/24 02:11 09/06/24 02:12 Temperature 97.7 F Pulse Rate 83 94 65 Respiratory Rate 16 Blood Pressure 112/82 100/79 115/72 Pulse Oximetry 98 Oxygen Delivery Method Room Air 09/06/24 03:32 09/06/24 03:37 Temperature 98.2 F 98.2 F Pulse Rate 78 78 Respiratory Rate 16 16 Blood Pressure 121/79 121/79 Pulse Oximetry 99 99 Oxygen Delivery Method Room Air Room Air BMI result Body Mass Index 41.2 Const Other: Appearance: Alert. Oriented X3. No acute distress. Eyes: Pupils equal, round and reactive to light. ENT: Pharynx normal. Neck: Normal inspection. Neck supple. No lymph nodes noted. No crepitus CVS: Normal heart rate and rhythm. Pulses normal. Normal S1 and S2, +1 systolic murmur Respiratory: No respiratory distress. Breath sounds normal. No Wheezing. No rales Abdomen: Soft and nontender. No rigidity. No distention. Skin: Skin warm and dry. Normal skin color. Normal skin turgor. Extremities: No lower extremity edema. No Lacerations. No Rash Neuro: Oriented X 3. No motor deficit. No sensory deficit. Moving all extremities. No slurred speech. CN 2 through 12 grossly intact Psych: calm, cooperative, normal affect Course Course Course Narrative: RME, this is a rapid medical exam performed by Dante Mackenzie please refer to primary provider for complete H&P- 40 past medical history significant for diabetes, hyperlipidemia, DVT on Eliquis presents for evaluation, traumatic shoulder pain. Plan for EKG, cardiac workup. The patient denies chest pain. His blood sugar was 91 at home when his symptoms started. Plan to repeat point of care glucose Medical Decision Making Medical Decision Making [facility] Narrative: my interpretation of EKG: Normal sinus rhythm, heart rate 86, no ST segment depression or elevation, no T-wave inversion, QTC 435 my interpretation of labs: Normal hematology, chemistry, troponin patient states that he is compliant with his Eliquis for history of DVT a year ago. Patient denies any chest palpitations, leg pain leg swelling. Patient states that now his arms Feel completely normal. orthostatic vitals negative point of care 91, patient asymptomatic, vitals stable Differential Diagnosis Differential Diagnoses: The differential diagnosis associated with the presentation includes ( hypoglycemia, orthostatic hypotension, anxiety) Lab Data [facility] Lab Attestation statement: I reviewed the patient's lab results. 09/05/24 21:02 09/05/24 21:02 Labs: Lab Results 09/05/24 Range/Units 21:02 WBC 9.7 (4.8-10.8) X10*3/uL RBC 5.45 (4.60-5.80) X10*6/uL Hgb 15.1 (14.0-18.0) g/dl Hct 43.6 (42.0-52.0) % MCV 80.0 (80.0-98.0) fL MCH 27.7 (27.0-33.0) pg MCHC 34.6 (31.0-36.0) g/dl RDW 12.8 (11.0-16.0) % Plt Count 269 (160-400) X10*3/uL MPV 9.6 (9.4-12.4) fL Immature Gran % (Auto) 0.2 (0.0-0.4) % Neut % (Auto) 62.5 (45-73) % Lymph % (Auto) 26.4 (20-40) % [place] % (Auto) 9.0 (2-11) % Eos % (Auto) 1.3 (0-4) % Baso % (Auto) 0.6 (0-2) % Lymph # (Auto) 2.6 (1.2-4.9) X10*3/uL [place] # (Auto) 0.9 (0.1-1.2) X10*3/uL Eos # (Auto) 0.1 (0.0-0.4) X10*3/uL Baso # (Auto) 0.1 (0.0-0.2) X10*3/uL Abs Immat Gran (auto) 0.02 (0.00-0.03) X10*3/uL Absolute Neuts (auto) 6.1 (2.0-8.3) x10*3/uL Absolute Nucleated RBC 0.000 (0.0-0.012) X10*3/uL Nucleated RBC % (auto) 0.0 (0.0-0.2) /100WBC Sodium 137 (135-145) mmol/L Potassium 3.8 (3.3-5.1) mmol/L Chloride 108 (96-108) mmol/L Carbon Dioxide 22 (22-29) mmol/L Anion Gap 11 L (12-20) BUN 15 (9-16) mg/dL Creatinine 0.83 (0.5-1.4) mg/dL Estim Creat Clear Calc 173.1 Estimated GFR > 60 Random Glucose 101 (60-115) mg/dL Calcium 8.9 D (8.4-10.2) mg/dL Magnesium 1.8 (1.6-2.6) mg/dL Total Bilirubin 0.4 (0.0-1.0) mg/dL AST 27 (5-37) U/L ALT 23 (0-40) U/L Alkaline Phosphatase 88 (39-117) U/L Troponin I High Sens < 2.7 (<3.5-35.0) ng/L Total Protein 7.9 (6.5-8.0) g/dL Albumin 4.0 (3.5-5.0) g/dL Lipase 30 (8-78) U/L Discharge Plan Discharge Clinical Impression: Light-headed feeling Patient Disposition: Home, Self-Care Instructions: Lightheadedness (ED) Additional Instructions: Please follow-up with your primary care physician tomorrow. If you have any worsening or new symptoms, please return to the emergency room or call 911 Prescriptions: No Action Eliquis 5 mg tablet 5 mg PO BID Qty: 60 1RF Mounjaro 5 mg/0.5 mL pen injector 5 mg subcut QWEEK Qty: 2 3RF omeprazole 20 mg tablet,delayed release (DR/EC) 20 mg PO DAILY (DME) FreeStyle Lite Strips Strip See Rx Instructions .Route Qty: 100 3RF Rx Instructions: use daily As directed to check blood glucose (DME) blood-glucose meter [FreeStyle Lite Meter] Kit See Rx Instructions .Route Qty: 1 0RF Rx Instructions: Use daily As directed to check blood glucose rosuvastatin [Crestor] 5 mg tablet 5 mg PO DAILY Stand Alone Forms: Work/School Release Interventions: ED Discharge Assessment Last Done: 09/06/24 03:37 Discharge Date/Time: 09/06/24 03:38 Print Language: Armenian
--- NOTE | 2024-09-05 20:47 | ECG_ITS ---
Test Reason : PAIN Blood Pressure : */* mmHG Vent. Rate : 86 BPM Atrial Rate : 86 BPM P-R Int : 184 ms QRS Dur : 98 ms QT Int : 364 ms P-R-T Axes : 15 -37 14 degrees QTcB Int : 435 ms Normal sinus rhythm Left axis deviation Borderline ECG No previous ECGs available Referred By: Sammy Mackenzie Electronically Signed By: YURIDIA PEÑA
[2024-09-05 21:07] LABS: MANUAL DIFF FLAG NO
[2024-09-05 21:08] LABS: Basophils Absolute Auto 0.1 X10*3/uL (0.0-0.2); Basophils Percent Auto 0.6 % (0-2); Eosinophils Absolute Auto 0.1 X10*3/uL (0.0-0.4); Eosinophils Percent Auto 1.3 % (0-4); Hematocrit 43.6 % (42.0-52.0); Hemoglobin 15.1 g/dl (14.0-18.0); Imm Gran Abs Auto 0.02 X10*3/uL (0.00-0.03); Imm Gran Pct Auto 0.2 % (0.0-0.4); Lymphocytes Absolute Auto 2.6 X10*3/uL (1.2-4.9); Lymphocytes Percent Auto 26.4 % (20-40); Mean Corpuscular HGB Conc 34.6 g/dl (31.0-36.0); Mean Corpuscular Hemoglobin 27.7 pg (27.0-33.0); Mean Platelet Volume 9.6 fL (9.4-12.4); Monocytes Absolute Auto 0.9 X10*3/uL (0.1-1.2); Neutrophils Absolute Auto 6.1 x10*3/uL (2.0-8.3); Neutrophils Percent Auto 62.5 % (45-73); Platelet Count 269 X10*3/uL (160-400); Red Blood Count 5.45 X10*6/uL (4.60-5.80); Red Cell Distribution Width 12.8 % (11.0-16.0); White Blood Count 9.7 X10*3/uL (4.8-10.8)
[2024-09-05 21:22] LABS: Alanine Aminotransferase 23 U/L (0-40); Alkaline Phosphatase 88 U/L (39-117); Anion Gap 11 (12-20); Aspartate Amino Transferase 27 U/L (5-37); Bilirubin Total 0.4 mg/dL (0.0-1.0); Blood Urea Nitrogen 15 mg/dL (9-16); Calcium 8.9 mg/dL (8.4-10.2); Carbon Dioxide 22 mmol/L (22-29); Chloride 108 mmol/L (96-108); Creatinine Clr Calc Pharmacy 173.1; Estimated Glomerular Filt Rate > 60; Glucose Random 101 mg/dL (60-115); Lipase 30 U/L (8-78); Magnesium 1.8 mg/dL (1.6-2.6); Potassium 3.8 mmol/L (3.3-5.1); Sodium 137 mmol/L (135-145); Total Protein 7.9 g/dL (6.5-8.0)
[2024-09-05 21:34] LABS: Troponin-I High Sensitivity < 2.7 ng/L (<3.5-35.0)
[2024-09-05 23:57] VITALS: BP 113/76; PULSE 87; RESP 16; TEMP 36.6; O2SAT 97
--- NOTE | 2024-09-05 23:58 | MHC.EDTECH ---
This pct just assumed care of Patient ,vitals taken ,Call tavares within Pt reach .
--- NOTE | 2024-09-06 00:34 | PC.NURSE ---
pt states symptoms all resolved
[2024-09-06 02:09] VITALS: BP 110/75; PULSE 63
[2024-09-06 02:10] VITALS: BP 112/82; PULSE 83
[2024-09-06 02:11] VITALS: BP 100/79; PULSE 94
[2024-09-06 02:12] VITALS: BP 115/72; PULSE 65; RESP 16; TEMP 36.5; O2SAT 98
--- NOTE | 2024-09-06 02:14 | MHC.EDTECH ---
Patient orthostatics vitals taken ,Provider aware of result ,0200 rounding done ,no apparent distress noted ,Plan of care continue .
[2024-09-06 03:32] VITALS: BP 121/79; PULSE 78; RESP 16; TEMP 36.8; O2SAT 99
[2024-09-06 03:37] VITALS: BP 121/79; PULSE 78; RESP 16; TEMP 36.8; O2SAT 99
[2024-09-06 04:36] LABS: Glucose, Whole Blood 91 mg/dL (60-115)
== END 2024-09-06 03:38 | disposition home or self-care (01) ==
PROVIDERS: Physician Assistant; Emergency Provider Emergency Medicine
DX: R42 Dizziness and giddiness (principal); E11.9 Type 2 diabetes mellitus without complications; E78.5 Hyperlipidemia, unspecified; Z79.899 Other long term (current) drug therapy; Z79.02 Long term (current) use of antithrombotics/antiplatelets; Z79.01 Long term (current) use of anticoagulants
CPT/HCPCS: 36415; 80053; 82947; 83690; 83735; 84484; 85025; 93005; 99283; 99285

== ENCOUNTER → 2024-09-05 20:47 | Outpatient (BNV) | payer BC, SELFPAY | PROVIDERS: Emergency Provider Emergency Medicine; Visit Provider Internal Medicine | DX: I44.4 Left anterior fascicular block (principal); R94.31 Abnormal electrocardiogram [ECG] [EKG] | CPT/HCPCS: 93010 ==

== ENCOUNTER 2024-09-12 09:27 | Outpatient (AMB) | payer BC, SELFPAY ==
--- NOTE | 2024-09-12 09:34 | A.OFFPC_ITS ---
Vital Signs 09/12/24 09:36 Height 6 ft 1 in Weight 324 lb 4 oz BMI 42.8 BP 108/80 Blood Pressure Location Lt brachial Position Sitting Respiration 16 Pulse 91 Pulse Source Pulse Oximeter Pulse Oximetry (%) 97 Oxygen Delivery Method Room Air Intake Visit Reasons: ER follow up ([facility] [place]) /Heart Murmur Intake Note: Emergency room follow up Social Media Intern Required: No Allergies No Known Allergies Allergy (Mild, Verified 09/12/24 09:36) NONE Tobacco use date assessed: 09/12/24 Dental Screening Dental Screen Date: 11/30/23 HPI ER follow up ([facility] [place]) /Heart Murmur HPI Details Patient is a 39-year-old male who presents today for an ER follow up. He went to the ER due to feeling flushed, lightheaded and having some left upper arm numbness and tingling. He states that he was worried that it was his heart. He states while at the ER they did run labs, imaging and an EKG which were all negative. He states that his symptoms had resolved while he was in the ER without any sort of treatment. He was cooking dinner that evening when he started to feel a little flushed and a little lightheaded. He checked his blood sugar and states that it was normal around 90. He did eat something it did not have any real change in symptoms. He states that he started to worry that this could be his heart and developed the tingling in the upper arm. His girlfriend was with him and told him that he did look a little red. He then went to the ER and felt better while he was there. He can not think of what would have triggered this. He believes that he was hydrated. He states that while he was in the ER they told him it he also had a heart murmur and to follow up. He denies any lower leg pain or swelling. A day or 2 after the ER he did have some left-sided chest tightness that resolved spontaneously. There was no radiation of the symptoms. He believes he was resting when he developed this. Endo: He is a controlled type 2 diabetic with Mounjaro 5 mg weekly. He has lost about 70 lb with the Mounjaro. He follows with diabetic Education. Intermittently checks his blood sugars and states on average they are less than 120 and usually closer to 100. -he has followed with Ophthalmology -he is intolerant of metformin Heme-Onc: Following with Hematology for right leg DVT. He has an appointment in November to discuss whether or not he would need to take the Eliquis for any additional time. Pulm: He was supposed to get a sleep study but states that it got cancelled and he has not yet rescheduled. He states he forgot about it. He does snore a lot and his girlfriend states that he has had apnea. He denies daytime fatigue. He thinks he sleeps ok. 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 1. Little interest or pleasure in doing things: not at all 2. Feeling down, depressed, or hopeless: several days 3. Trouble falling or staying asleep, or sleeping too much: not at all 4. Feeling tired or having little energy: not at all 5. Poor appetite or overeating: not at all 6. Feeling bad about yourself - or that you are a failure or have let yourself or your family down: not at all 7. Trouble concentrating on things, such as reading the newspaper or watching television: not at all 8. Moving or speaking so slowly that other people could have noticed. Or the opposite - being so fidgety or restless that you have been moving around a lot more than usual: not at all 9. Thoughts that you would be better off or of hurting yourself in some way: not at all Total score: 1 Depression Screening Interpretation: Negative Depression Screening Done: Yes 95269 - PHQ-9 Billing: Yes Source: Developed by Drs. Aquilino Hargrove, Xuan Monroe, Leonardo Anaya and colleagues, with an educational wilmar from [employer]. Thrive Questionnaire Date Thrive assessed: 08/01/24 I am a: Patient What is your living situation today?: I have a steady place to live Within the past 12 months, did the food you bought not last and you didn't have the money to get more?: Sometimes True Within the past 12 months, did you worry whether your food would run out before you got money to buy more?: Never true Do you have trouble paying for medicines?: No Do you have trouble getting transportation to medical appointments?: No Do you have trouble paying your heating and electricity bill?: No Do you have trouble taking care of your child, family member or friend?: No Do you have trouble with day-to-day activities such as bathing, preparing meals, shopping, managing finances, etc.?: No Are you currently unemployed and looking for a job?: No Are you interested in more education?: Yes Please select the resources that you would like help with: None Currently or been in a relationship where the following occur: I choose not to answer THRIVE Score: 1 MARIO-7 AMB Questionnaire MARIO-7 Date MARIO - 7 assessed: 11/30/23 Source: Developed by Drs. Aquilino Hargrove, Xuan Monroe, Leonardo Anaya and colleagues, with an educational wilmar from [employer]. Physical exam (Primary Care) Vital Signs: Last Vital Signs Pulse 91 09/12/24 09:36 Resp 16 09/12/24 09:36 BP 108/80 09/12/24 09:36 Pulse Ox 97 09/12/24 09:36 Oxygen Delivery Method Room Air 09/12/24 09:36 BMI result Body Mass Index 42.8 Tobacco/Smoking Status: Tobacco use Status Tobacco use date assessed 09/12/24 09/12/24 09:39 Patient Tobacco Use Status Never used Tobacco 09/12/24 09:39 e-Cigarette/Vaping Use Never Used 09/12/24 09:39 PHQ-9: PHQ-9 Score PHQ-9: Total score 1 09/12/24 10:18 Depression Screening Interpretation: Negative Thrive Assessment: Date of Thrive Assessment Date Thrive assessed 08/01/24 09/12/24 09:39 Currently or been in a relationship where the following occur: I choose not to answer Const Orientation/consciousness: patient oriented x3 HENMT Ears: hearing grossly normal bilaterally Neck Thyroid: Thyroid normal Lymphatic: no lymphadenopathy noted Resp Auscultation: clear to auscultation bilaterally Cardio Rate: regular rate Rhythm: regular rhythm Heart sounds: S1 normal heart sound present and S2 normal heart sound present GI Inspection: Yes normal to inspection Palpation (GI): Soft to palpation and Other GI palpation findings present (nontender, no cva tenderness) Auscultation: normoactive bowel sounds Rectal Exam - Male: Yes deferred Skin General skin exam: no rashes or lesions noted Neuro General: patient oriented x3, gait normal and no focal motor deficits Results Reviewed Results Reviewed: labs and imaging from ED reviewed with pt Coding Level of Care Code Est Pt Level 4 (68206) Complex EM visit Add On G2211 Diagnoses Chest tightness R07.89 Dizziness R42 Dyslipidemia E78.5 Controlled type 2 diabetes mellitus without complication, without long-term current use of insulin E11.9 Diabetes mellitus assisted insulin use: without cranberry bog supervisor use Additional Codes PHQ-9 - 30804 - PHQ-9 Billing: Yes ([id number]) Assessment & Plan Assessment & Plan (1) Chest tightness: Code(s): R07.89 - Other chest pain Category: Medical Plan: Currently asymptomatic. Labs and EKG from hospital reviewed with patient today in the office. Stress test and echo ordered. We will follow up pending test results. (2) Dizziness: Code(s): R42 - Dizziness and giddiness Category: Medical Plan: As above. Currently asymptomatic. He will let me know if anything changes with the symptoms or if they return. (3) Dyslipidemia: Code(s): E78.5 - Hyperlipidemia, unspecified Category: Medical Plan: Lipids ordered. Compliant with the Crestor. (4) Controlled type 2 diabetes mellitus without complication: Code(s): E11.9 - Type 2 diabetes mellitus without complications Category: Medical Qualifiers: Diabetes mellitus cranberry bog supervisor insulin use: without assisted use Qualified Code(s): E11.9 - Type 2 diabetes mellitus without complications Plan: Currently well-controlled with the Mounjaro. Denies any hypoglycemic events. Orders: Orders RT home sleep study Today R06.81 - Apnea, not elsewhere classified CA echo transthoracic complete Today E11.9 - Type 2 diabetes mellitus without complications, E78.5 - Hyperlipidemia, unspecified, R07.89 - Other chest pain, R42 - Dizziness and giddiness CA stress test Today E11.9 - Type 2 diabetes mellitus without complications, E78.5 - Hyperlipidemia, unspecified, R07.89 - Other chest pain, R42 - Dizziness and giddiness
[2024-09-12 09:36] VITALS: BP 108/80; PULSE 91; RESP 16; O2SAT 97; BMI 42.8
== END 2024-09-12 09:54 | disposition home or self-care (01) ==
LOC: HO.HMCFM 09:28
PROVIDERS: PCP Physician Assistant; Visit Provider Physician Assistant
DX: R07.89 Other chest pain (principal); R42 Dizziness and giddiness; E78.5 Hyperlipidemia, unspecified; E11.9 Type 2 diabetes mellitus without complications

== ENCOUNTER → 2024-09-12 09:27 | Outpatient (BNVA) | payer BC, SELFPAY | PROVIDERS: PCP Physician Assistant; Visit Provider Physician Assistant | DX: R07.89 Other chest pain (principal); R42 Dizziness and giddiness; E78.5 Hyperlipidemia, unspecified; E11.9 Type 2 diabetes mellitus without complications | CPT/HCPCS: 96127 ==

== ENCOUNTER 2024-09-20 11:46 | Emergency (ER) | payer BC, SELFPAY ==
--- NOTE | ~2024-09-20 | XR_ITS ---
EXAMINATION: XR LUMBAR SPINE 2-3 VIEWS HISTORY: left lower back pain COMPARISON: There are no prior studies for comparison. FINDINGS: AP, lateral, and coned down views of the lumbar spine are submitted. Osseous mineralization is normal. Five nonrib-bearing lumbar vertebral bodies are identified, maintaining normal height and alignment without evidence of fracture or spondylolisthesis. The intervertebral disc spaces are preserved. The posterior elements are intact. The visualized paraspinal soft tissues are unremarkable. XR/XR lumbar spine 2-3V IMPRESSION: Unremarkable examination of the lumbar spine. Electronically signed by: Aquilino Harris MD 09/20/2024 01:08 PM EDT
[2024-09-20 12:16] VITALS: BP 107/72; PULSE 88; RESP 18; TEMP 36.6; O2SAT 99; BMI 28.0
--- NOTE | 2024-09-20 12:17 | ED_ITS ---
HPI - General Adult General Chief complaint: Back Pain/Injury Stated complaint: back pain Time Seen by Provider: 09/20/24 16:40 Source: patient, RN notes reviewed and old records reviewed Mode of arrival: ambulatory Limitations: no limitations History of Present Illness ED Provider: Felicia HPI narrative: Patient is a 39-year-old male presenting with atraumatic left lower back pain since 9:20 am. Denies saddle anesthesia, b/b incontinence. States symptoms have improved since taking ibuprofen. Denies any radiation of pain to lower extremities. Denies fevers. MD complaint: Lower back pain Onset (ago): hour(s) Related Data Home Medications ?Medication ?Instructions ?Recorded ?Confirmed omeprazole 20 mg tablet,delayed 20 mg PO DAILY 11/30/23 06/15/24 release rosuvastatin 5 mg tablet (Crestor) 5 mg PO DAILY 11/30/23 06/15/24 Previous Rx's ?Medication ?Instructions ?Recorded blood sugar diagnostic (FreeStyle #100 ea 11/30/23 Lite Strips) blood-glucose meter (FreeStyle #1 ea 11/30/23 Lite Meter kit) apixaban 5 mg tablet (Eliquis) 5 mg PO BID #60 tabs 08/30/24 tirzepatide 5 mg/0.5 mL 5 mg (0.5 mL) subcut QWEEK #2 mL 08/30/24 subcutaneous pen injector (Love) cyclobenzaprine 10 mg tablet 10 mg PO TID PRN muscle spasm #10 09/20/24 tabs lidocaine 5 % topical patch 1 patch topical DAILY #15 ea 09/20/24 Allergies Allergy/AdvReac Type Severity Reaction Status Date / Time No Known Allergies Allergy Mild NONE Verified 09/20/24 12:18 Review of Systems Review of Systems: As per HPI Yes all other systems are reviewed and are negative Constitutional: Constitutional: Reports as per HPI ON LICENSE OF [facility] Past Medical History Medical History Elevated homocysteine Right leg DVT Dyslipidemia Uncontrolled type 2 diabetes mellitus with hyperglycemia Family History Family History Father Brain cancer Throat cancer Diabetes Social History Social History Household Members: Significant Other Housing: House Housing Other:: 2 family house Alcohol intake: current Alcohol intake frequency: holidays/special occasions only Patient Tobacco Use Status: Never used Tobacco e-Cigarette/Vaping Use: Never Used Second Hand Smoke Exposure: Yes Substance Use Type: Marijuana Advance Directives: No Advance Directives Information Provided: Yes Do you have a plan to hurt others: No Plan Current occupational status: employed 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 Blood pressure normal. Heart rate normal. Respiratory rate normal. Temperature normal. Oxygen saturation normal. Const General: cooperative, healthy appearing and no acute distress Orientation/consciousness: oriented to person, oriented to place, oriented to time and patient oriented x3 Limitations: no limitations HENMT Head: Yes normocephalic and Yes atraumatic Ears: external ears normal General nose exam: Normal external nose present Face and sinus: Yes face symmetric Mouth: oropharynx normal and moist mucous membranes Throat: Yes uvula midline Eyes Pupils: Equal, round and reactive pupils present Neck Neck: Yes normal visual inspection and Yes supple Resp Effort & Inspection: normal respiratory effort and able to speak in complete sentences Auscultation: clear to auscultation bilaterally Cardio Rate: regular rate Rhythm: regular rhythm Heart sounds: S1 normal heart sound present and S2 normal heart sound present GI Palpation (GI): Soft to palpation and nontender Auscultation: normoactive bowel sounds General: Yes no CVA tenderness Back/Spine/Pelvis Back: no CVA tenderness Thoracic/Lumbar Spine: thoracic and lumbar spine normal to inspection, thoraco- lumbar ROM normal, straight leg raise negative bilaterally, pain with thoraco- lumbar ROM, paraspinal muscle tenderness on the left in the upper thoracic and in the mid lumbar, No thoracic spinal tenderness and No lumbar spinal tenderness Skin General skin exam: elasticity normal and turgor normal Neuro General: oriented to person, oriented to place, oriented to time, patient oriented x3, gait normal, tone normal, moves all extremities, Normal light touch and pain sensation, no focal motor deficits, CN's II-XI intact bilaterally and deep tendon reflexes 2+ bilaterally Cranial nerves: Yes Equal, round and reactive pupils present Cognition (Neuro): normal cognition Motor exam (neuro): 5/5 motor strength present throughout, Normal motor muscle tone present throughout and Motor abnormalities not present Extrem General: Yes full ROM, Yes no pedal edema and Yes no calf tenderness Psych Mental Status: mental status grossly normal Affect: normal affect Thought process: Normal thought process present Course Course Course Narrative: This is a rapid medical exam performed by Deborah Duarte NP: Additional HPI, ROS, PE not included below will be deferred to primary provider. Patient is a 39-year-old male presenting with atraumatic left lower back pain since 9:20 am. Denies saddle anesthesia, b/b incontinence. Plan: xray Medical Decision Making Medical Decision Making [facility] Narrative: Patient is a 39-year-old male presenting with atraumatic left lower back pain since 9:20 am. On exam patient is awake, A+Ox3, VS WNL, afebrile, normal neurological exam without focal deficits, physical exam findings as above. Given reported symptoms and physical exam findings, initial differential includes but is not limited to initial differential includes lumbar strain, lumbar radiculopathy, degenerative disc disease, disc herniation, spinal stenosis, spondylosis. Less likely vertebral fracture. Do not suspect malignancy/mass, SEA, cauda equina/cord compression. X-ray lumbar spine unremarkable. My interpretation is in agreement with the radiologist's interpretation. Patient updated on results and all questions answered. Will treat with cyclobenzaprine topical lidocaine patches, advised patient to continue Tylenol and ibuprofen. Follow up with PCP as needed. Return precautions discussed. Patient verbalized understanding of and agreement with plan. Differential Diagnosis Differential Diagnoses: The differential diagnosis associated with the pres entation includes As per MDM Independent Interpretation I performed an independent interpretation of an: Plain X-Ray Interpretation: No acute abnormalities lumbar x-ray Radiology Impression Discussion of test interpretation with radiology: I have reviewed the radiologist's reading. Radiologist Impression: XR/XR lumbar spine 2-3V IMPRESSION: Unremarkable examination of the lumbar spine. External Record Review External record reviewed: Inpatient record, Office record and Outpatient record Prescription Management I considered prescription management with: Other Discharge Plan Discharge Clinical Impression: Strain of lumbar region Patient Disposition: Home, Self-Care Instructions: Low Back Strain (ED), Acute Low Back Pain (ED) Additional Instructions: You were evaluated in the emergency department today for back pain. Your evaluation did not show signs of medical conditions requiring emergent intervention at this time. We recommended that you use ibuprofen or Tylenol per package directions every 6 hours as needed for pain. If necessary, you can alternate these medications so that you take one medication every 3 hours. For instance, at noon take ibuprofen, then at 3:00 p.m. take Tylenol, then at 6:00 p.m. take ibuprofen. You have been prescribed a muscle relaxer called Flexeril (cyclobenzaprine) which you may take every 8 hours as needed for spasms. Do not drive, drink alcohol, or operate heavy machinery while taking this as it can cause drowsiness. You have been prescribed 5% topical lidocaine patches which you can wear for up to 12 hours in a 24 hour period. Do not apply heat directly over the patches. Please schedule an appointment for follow-up with your primary care physician this week for further evaluation of your symptoms. Return to the emergency department if you experience worsening back pain, difficulty walking, fevers, numbness, tingling, incontinence, groin numbness or tingling, or any other concerning symptoms. Prescriptions: New lidocaine 5 % adhesive patch,medicated 1 patch topical DAILY Qty: 15 0RF Rx Instructions: leave on most painful area for up to 12 hrs cyclobenzaprine 10 mg tablet 10 mg PO TID PRN (Reason: muscle spasm) Qty: 10 0RF No Action Eliquis 5 mg tablet 5 mg PO BID Qty: 60 1RF Mounjaro 5 mg/0.5 mL pen injector 5 mg subcut QWEEK Qty: 2 3RF omeprazole 20 mg tablet,delayed release (DR/EC) 20 mg PO DAILY (DME) FreeStyle Lite Strips Strip See Rx Instructions .Route Qty: 100 3RF Rx Instructions: use daily As directed to check blood glucose (DME) blood-glucose meter [FreeStyle Lite Meter] Kit See Rx Instructions .Route Qty: 1 0RF Rx Instructions: Use daily As directed to check blood glucose rosuvastatin [Crestor] 5 mg tablet 5 mg PO DAILY Stand Alone Forms: Work/School Release Discharge Date/Time: 09/20/24 16:46 Print Language: German
== END 2024-09-20 16:46 | disposition home or self-care (01) ==
LOC: HO.ED 16:44
PROVIDERS: Emergency Provider Emergency Medicine; PCP Physician Assistant
DX: S39.012A Strain of muscle, fascia and tendon of lower back, initial encounter (principal); X58.XXXA Exposure to other specified factors, initial encounter; E11.9 Type 2 diabetes mellitus without complications; E78.5 Hyperlipidemia, unspecified; Z86.718 Personal history of other venous thrombosis and embolism; Z79.899 Other long term (current) drug therapy; Z79.02 Long term (current) use of antithrombotics/antiplatelets; Y93.9 Activity, unspecified; Y92.9 Unspecified place or not applicable; Y99.9 Unspecified external cause status; Z79.01 Long term (current) use of anticoagulants
CPT/HCPCS: 72100; 99281; 99283

== ENCOUNTER → 2024-09-20 12:17 | Outpatient (BNV) | payer BC, SELFPAY | PROVIDERS: PCP Physician Assistant; Visit Provider Radiology Diagnostic Radiology | DX: M54.50 Low back pain, unspecified (principal) | CPT/HCPCS: 72100 ==

== ENCOUNTER → 2024-10-05 08:52 | Outpatient (REF) | payer BC, SELFPAY ==
--- NOTE | 2024-10-05 08:56 | CA_ITS ---
Transthoracic Echocardiogram Patient (Last, First, Middle): Severo Blank, Gender: Male Date of : 1985 Age: 39 Procedure Date: 10/05/2024 Procedure Type: Transthoracic Echocardiogram Location: OP Height: 185.42 cm Weight: 141.07 kg BSA: 2.60 m2 Heart Rate: bpm BP: 110 / 84 mmHg Filing Or Registry Clerk: TO Referring MD: Ashley Brown PA-C Symptoms: R07.89 - Other chest pain Study Quality: Adequate Conclusions: - Normal left ventricular size, thickness, systolic function, and wall motion. The visually estimated ejection fraction is between 55-60%. Diastolic function is normal for age. - Normal right ventricular cavity size and systolic function. - There is mild dilatation of the ascending aorta measuring 3.60 cm. Findings Left Ventricle Normal left ventricular size, thickness, systolic function, and wall motion. The visually estimated ejection fraction is between 55-60%. Diastolic function is normal for age. Right Ventricle Normal right ventricular cavity size and systolic function. Atria The left atrium is normal in size. The right atrium is normal in size. Aortic Valve Normal aortic valve structure and function. There is no aortic valve stenosis. There is no aortic valve regurgitation. Mitral Valve The mitral valve appears normal. There is no mitral valve regurgitation. There is no mitral valve stenosis. Pulmonic Valve The pulmonic valve is likely normal. Tricuspid Valve Normal tricuspid valve structure. There is trace tricuspid valve regurgitation. Normal right atrial pressure. There is no evidence of pulmonary hypertension. Great Vessels There is mild dilatation of the ascending aorta measuring 3.60 cm. The visualized portions of the pulmonary artery and branches are normal. Venous The inferior vena cava is normal in size and collapses greater than 50% with inspiration. Pericardium/Pleural There is no evidence of pericardial effusion. Prior Study Comparison No prior study available for comparison. Measurements 2D Linear Measurements IVSd: 0.79 0.6-0.9/0.6-1.0 cm LVIDd: 5.76 3.9-5.3/4.2-5.9 cm LVIDd Index: 2.22 2.4-3.2/2.2-3.1 cm/m2 LVIDs: 3.91 2.0-3.6 cm LVPWd: 0.82 0.7-1.1 cm LA Diam: 3.50 2.7-3.8/3.0-4.0 cm LAIDs Index: 1.35 1.5-2.3 cm/m2 LV Mass: 216.23 67-162/88-224 g LV Mass Index: 83.16 43-95/49-115 g/m2 LVOT Diam: 2.40 3.0+(-)1.3 cm 2D Systolic Function EF 4C: 56.90 >55% EF 2C: 57.80 >55% EF BiP: 56.70 >55% Mitral Valve MV Pk E: 0.78 MV PK A: 0.45 MV Decel Time: 214.00 E/A: 1.70 E'Lateral: 13.10 E'Medial: 6.74 E/E' Med: 11.60 E/E' Lat: 6.00 PHT: 63.00 MVA PHT: 3.49 Decel Archuleta: 3.65 Aortic Valve AoV Pk Kingsley: 1.21 AoV Mn Kingsley: 0.80 AoV VTI: 0.26 AoV Pk Grad: 6.00 Aov Mn Grad: 3.00 LIZZY Cont.VTI: 3.96 LVOT LVOT Pk Kingsley: 1.02 LVOT Mn Kingsley: 0.72 LVOT VTI: 0.23 LVOT Pk Grad: 4.00 LVOT Mn Grad: 2.00 LVOT Diam: 2.40 LVOT Area: 4.52 Diastolic Function MV Pk E: 0.78 MV Pk A: 0.45 E/A: 1.70 E'Medial: 6.74 E/E' Med: 11.60 E' Laterial: 13.10 E/E' Lat: 6.00 Right Ventricle TAPSE (mm): 19.40 TVS' Kingsley: 10.20 Tricuspid Valve TR Pk Kingsley: 1.85 TR Pk Grad: 14.00 RA Press: 3.00 RVSP: 17.00 Great Vessels Aorta Sinus of Valsalva: 3.61 2.0-3.5 cm Ao Asc: 3.60 2.1-3.4 cm Ao Arch: 3.10 Updated in Other Vendor System with Status of Final Catrachito Hsu MD electronically signed on 10/07/2024 9:44:55 PM with status of Final
--- NOTE | 2024-10-05 08:56 | CA_ITS ---
Acquisition Time: 2024-10-05 09:43:24 Total Exercise Time: 00:06:18 Test Indications: CP Medications: SEE H&P Protocol: AMARIS Max HR: 169 BPM 94% of Pred: 179 BPM Max BP: 144/90 mmHG Max Work Load: 7.4 METS Exercise stress test with exercise 6 mins 18 secs of Amaris Protocol, achieving 91% MPHR, with reports of mild SOB, no chest pain, with isolated PVCs, with normotensive response to exercise. Without EKG changes meeting criteria for ischemia. In recovery, breathing returned to baseline. Test reviewed with Dr. Hsu. Referred By: Ashley Brown Electronically Signed By: Kojo Snell
== END ==
LOC: HO.CARD 08:52
PROVIDERS: PCP Physician Assistant; Visit Provider Physician Assistant
DX: R07.89 Other chest pain (principal); R42 Dizziness and giddiness; E11.9 Type 2 diabetes mellitus without complications; E78.5 Hyperlipidemia, unspecified
CPT/HCPCS: 93017; 93306

== ENCOUNTER → 2024-10-05 08:56 | Outpatient (BNV) | payer BC, SELFPAY | PROVIDERS: PCP Physician Assistant | DX: I49.3 Ventricular premature depolarization (principal) | CPT/HCPCS: 93016; 93018; 93320; 93325; 93350 ==

== ENCOUNTER 2024-10-22 14:03 | Outpatient (AMB) | payer BC, SELFPAY ==
--- NOTE | 2024-10-22 14:08 | A.OFFVIS_ITS ---
Intake Intake Visit Reasons: 30 min [employer] Associate Required: No Accompanied by: Self / Same As Patient Allergies No Known Allergies Allergy (Mild, Verified 09/20/24 12:18) NONE HPI Comprehensive Diabetes Asmnt Most Recent Diabetes Results: Creatinine 0.83 mg/dL (0.5-1.4) 09/05/24 Blood Urea Nitrogen 15 mg/dL (9-16) 09/05/24 Sodium 137 mmol/L (135-145) 09/05/24 Potassium 3.8 mmol/L (3.3-5.1) 09/05/24 Chloride 108 mmol/L (96-108) 09/05/24 Carbon Dioxide 22 mmol/L (22-29) 09/05/24 Calcium 8.9 mg/dL (8.4-10.2) 09/05/24 AST 27 U/L (5-37) 09/05/24 ALT 23 U/L (0-40) 09/05/24 Total Protein 7.9 g/dL (6.5-8.0) 09/05/24 Albumin 4.0 g/dL (3.5-5.0) 09/05/24 [facility] Medical History Elevated homocysteine Right leg DVT Dyslipidemia Uncontrolled type 2 diabetes mellitus with hyperglycemia Family History Father Brain cancer Throat cancer Diabetes Social History Household Members: Significant Other Housing: House Housing Other:: 2 family house Alcohol intake: current Alcohol intake frequency: holidays/special occasions only Patient Tobacco Use Status: Never used Tobacco e-Cigarette/Vaping Use: Never Used Second Hand Smoke Exposure: Yes Substance Use Type: Marijuana Current occupational status: employed 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 2= needs review? 3= comprehend keep point? 4= demonstrates understanding/ competent? NC= Not Covered Topics Learning Objective: Initial visit Initial or post srvc Initial or post srvc Initial or post srvc Initial or post srvc Initial or post srvc Post srvc Comments Pre Edu-assessment/plan Outcome or reassess Outcome or reassess Outcome or reassess Outcome or reassess Outcome or reassess Outcome or reassess Diabetes pathophysiology 1 3 Healthy eating 1 3 Being active 1 3 Taking medication 1 3 Monitoring glucose 1 3 Acute complication 2 3 Chronic complicated 2 4 Lifestyle and healthy coping 2 4 A Diabetes distress in support 2 4 ?Diabetes pathophysiology: ?Defined diabetes med identify own type of diabetes; list 3 options for treating diabetes Healthy eating: ?Described effect of type, amount and ?timing of food on blood glucose; list 3 methods for planning meal Being active: ?State effect of exercise on blood glucose level Taking medication: ?State effect of diabetes medications on diabetes; name diabetes medications taking, action and side effects Monitoring glucose: ?Identify recommended blood glucose targets and personal target Acute complication: ?List symptoms and treatment of hyper and hypoglycemia, DKA, sick day guidelines and guidelines for severe weather or situations of crisis and diabetes supply manage Chronic complication: ?To find the relationship of blood glucose levels to long- term complications of diabetes in screening and preventative measures Lifestyle and healthy coping: ?Described lifestyle and healthy coping strategies to rule out diabetes self-management Diabetes to stress and support: ?Recognize Diabetes to stress and be able to identified support options (2) Uncontrolled type 2 diabetes mellitus with hyperglycemia: Code(s): E11.65 - Type 2 diabetes mellitus with hyperglycemia Plan: Learning objectives: The patient was provided with verbal and written education on the following topics as outlined below. The patient met all learning objectives and was able to verbalize understanding and provide teach back of education topics discussed . The patient was provided with the opportunity to ask questions and all questions were answered. Patient's last A1c August 2024 5.2% Exercise Medical clearance Effect of exercise on blood sugar Start slowly and gradually increase pace/duration over time Goal amount of exercise Checking blood glucose/have a source of carbs with you Diabetes Complications: ?Nephropathy :Kidney Disease ?diabetes can damage the kidneys, which is not only can cause them to fail but can make them lose their ability to filter waste from the blood? ?Retinopathy: Eye complications ?Retinopathy? is the commonest long-term complication of diabetes. It is leading cause of blindness Besides, Retinopathy- People with diabetes? are also prone to cataract and Glaucoma. ?Neuropathy: Nerve damage -It involves temporary or permanent damage to nerve tissue. Nerve tissue gets injured mainly due to decreased blood flow and rise in blood glucose levels. This damage can lead to pain , or loss of sensation it can also include sexual dysfunction in both men and women ? Infections poor healing: People with diabetes? have increased susceptibility to various infections, such as? pneumonias, pyelonephritis, carbuncles and diabetic ulcers. This may be due to poor blood supply, reduced cellular immunity or hyperglycemia. ?Heart Disease And Stroke: People with diabetes are four times more prone to develop Heart disease than those who do not have diabetes ?Depression: Feeling down once in awhile is normal, but some people feel sadness that just won't go away. Life for them seems hopeless. Feeling this way most of the day for two weeks or more is a sign of serious depression ?Gum Disease: People get gum disease when plaque destroys the gums and bone around the teeth. People with diabetes can get gum disease from having high blood glucose levels for a long time Know your goals * A1C * Blood sugar targets * Blood pressure * Cholesterol/LDLUrine microalbumin Patient Response to instructions: Comprehension of Instructions: Readiness to make changes: a How confident they feel about making changes: Letter of completion of diabetes Education program will be sent to referring provider Smart Goal Assessment:Pt will increase Physical activity to 10 minutes 5 days a week Pt met goal more than 75% Patient Response to instructions: Comprehension of Instructions: Good Readiness to make changes:? action How confident they feel about making changes:Positive Portions of this note were created using voice recognition software, please excuse any words or phrases that may have been misinterpreted. Patient Instructions: Include regular daily activity. ADA recommends 30 minutes of exercise 5 days a week. Weight loss talk to PCP or [employer] Operator before starting new plan. Test blood sugar as directed; Fasting and 2hpp largest meal. Watch trends in results. Utilize results and to assess how food, physical activity and me dications affect blood sugar results. Bring glucometer or CGM to next visit. Be knowledgeable about diabetes medication, its action, side effects, efficacy, toxicity, prescribed dosage, appropriate timing and frequency of administration, effect of missed and delayed doses and instructions for storage, travel and safety. Problem solving techniques to monitor hypo/hyperglycemia episodes and treatm ents. Reduce risk reduction behaviors, smoking cessation, regular eye, foot and dental examinations. Coding Level of Care Code Est Pt Level 1 (67662) Diagnoses Controlled type 2 diabetes mellitus without complication, without long-term current use of insulin E11.9 Diabetes mellitus shelter insulin use: without shelter use Uncontrolled type 2 diabetes mellitus with hyperglycemia E11.65
== END 2024-10-22 14:44 | disposition home or self-care (01) ==
LOC: HO.ENCR 14:04
PROVIDERS: PCP Physician Assistant; Visit Provider Registered Nurse Diabetes Educator
DX: E11.9 Type 2 diabetes mellitus without complications (principal); E11.65 Type 2 diabetes mellitus with hyperglycemia

== ENCOUNTER → 2024-10-22 14:03 | Outpatient (BNVA) | payer BC, SELFPAY | PROVIDERS: PCP Physician Assistant; Visit Provider Registered Nurse Diabetes Educator | DX: E11.65 Type 2 diabetes mellitus with hyperglycemia (principal) | CPT/HCPCS: 99211 ==

== ENCOUNTER 2024-11-05 11:07 | Outpatient (AMB) | payer BC, SELFPAY ==
--- NOTE | 2024-11-05 11:09 | AM.OFFWIN_ITS ---
Intake Vital Signs 11/05/24 11:13 Height 6 ft 1 in Weight 325 lb BMI 42.9 BP 126/80 Blood Pressure Location Rt brachial Position Sitting Pulse 63 Pulse Source Pulse Oximeter Pulse Oximetry (%) 98 Oxygen Delivery Method Room Air Intake Visit Reasons: EP Bleeding in ear, rt ear pain Intake Note: Patient here for right ear pain and bleeding that he noticed this morning. Patient Tobacco Use Status: Never used Tobacco Allergies No Known Allergies Allergy (Mild, Verified 11/05/24 11:13) NONE Do you need a note to return to daycare/school/sports/work: Yes HPI HPI Comments History of Present Illness Details 39 y/o Male patient who presents to the walk in clinic with c/o right ear pain and bleeding that he noticed this morning. Pt reports he was washing his Hair yesterday when he got a little bit of water inside his inner Canal and noticed some mild pain. He woke up this morning and noticed blood on the Pillow. Rates the Ear pain 5/10 on pain Scale. Pt is on Eliquis for Blood Clots. Denies injury or trauma. Denies any recent URI. 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 Current occupational exposures/hazards: No Gender identity: Male Cognitive needs: No Hearing needs: No Vision needs: Yes (glasses) Review of Systems Const All systems reviewed & are unremarkable except as noted in HPI and below Physical Exam Vital Signs: Last Vital Signs Pulse 63 11/05/24 11:13 BP 126/80 11/05/24 11:13 Pulse Ox 98 11/05/24 11:13 Oxygen Delivery Method Room Air 11/05/24 11:13 BMI result Body Mass Index 42.9 Const General: no acute distress Nutritional Appearance: obese morbidly obese Orientation/consciousness: patient oriented x3 HEENT Head: Yes normocephalic Ears: external ears normal, TM normal on the left, Abnormal EAC present erythema, EAC tenderness on the right and otic discharge bloody on the right and TM abnormal General nose exam: Normal external nose present Neuro General: patient oriented x3 Assessment & Plan Assessment & Plan (1) Otitis externa: Code(s): H60.90 - Unspecified otitis externa, unspecified ear Qualifiers: Otitis externa type: hemorrhagic Chronicity: acute Laterality: right Qualified Code(s): H60.321 - Hemorrhagic otitis externa, right ear Plan: Medium amount of Blood seen in right Canal Both TM intact, no perforation or bulging. Hearing grossly normal. Medications: New ciprofloxacin-dexamethasone 0.3-0.1 % 4 drps otic (ears) BID 7 days 7.5 mL 0RF H60.90 - Unspecified otitis externa, unspecified ear Coding Level of Care Code Est Pt Level 4 (78655) Diagnoses Acute hemorrhagic otitis externa of right ear H60.321 Otitis externa type: hemorrhagic Chronicity: acute Laterality: right Time Spent (min) 20
[2024-11-05 11:13] VITALS: BP 126/80; PULSE 63; O2SAT 98; BMI 42.9
== END 2024-11-05 11:52 | disposition home or self-care (01) ==
PROVIDERS: PCP Physician Assistant; Visit Provider Nurse Practitioner Family
DX: H60.321 Hemorrhagic otitis externa, right ear (principal)

== ENCOUNTER → 2024-11-05 11:07 | Outpatient (BNVA) | payer BC, SELFPAY | PROVIDERS: PCP Physician Assistant; Visit Provider Nurse Practitioner Family | DX: Z13.89 Encounter for screening for other disorder (principal) ==

== ENCOUNTER 2024-11-08 13:02 | Outpatient (AMB) | payer BC, SELFPAY ==
--- NOTE | 2024-11-08 13:13 | A.OFFPC_ITS ---
Vital Signs 11/08/24 13:18 Height 6 ft 1 in Weight 324 lb 2 oz BMI 42.8 BP 126/84 Blood Pressure Location Rt brachial Position Sitting Respiration 14 Pulse 98 Pulse Source Pulse Oximeter Intake Visit Reasons: small amount of blood in stool Intake Note: Blood in the stool and pain. Happened the day he called in on 11/06/24. No symptoms since. Also noticed blood in right ear. Big Data Engineer Required: No Allergies No Known Allergies Allergy (Mild, Verified 11/05/24 11:13) NONE Medication List - Last Reconciled 11/08/24 by Ashley Brown PA-C apixaban (Eliquis) 5 mg PO BID blood sugar diagnostic (FreeStyle Lite Strips) use daily As directed to check blood glucose blood-glucose meter (FreeStyle Lite Meter kit) Use daily As directed to check blood glucose ciprofloxacin-dexamethasone 0.3-0.1 % 4 drps otic (ears) BID 7 days lidocaine 5% 1 patch topical DAILY omeprazole 20 mg PO DAILY ondansetron HCl 4 mg PO Q8H PRN rosuvastatin (Crestor) 5 mg PO DAILY tirzepatide (Mounjaro) 5 mg (0.5 mL) subcut QWEEK Tobacco use date assessed: 11/08/24 Dental Screening Dental Screen Date: 11/30/23 HPI small amount of blood in stool HPI Details Patient is a 39-year-old male with a significant past medical history of previous right leg DVT, severe obesity, controlled type 2 diabetes presenting today for an acute problem visit. GI: Pt complains today of blood in the stool a few days ago. He states he was not constipated and did not have any diarrhea. He has had some intermittent mucous in the stools. Stools have not changed in consistency. He states that he moves his bowels a few times a day. No n/v/d. No pain. No rectal pain. No fam hx of colon cancer or IBD. Endo: Last A1c was normal. He is on Mounjaro 5 mg weekly. This has helped him with weight loss but he would like to go up on the dosage to see more benefit. Denies any hypoglycemic events. CV: Blood pressure today in the office is 126/84. He did have a recent echo which showed aortic dilatation. [facility] Medical History (Updated 11/08/24 @ 13:41 by Ashley Brown PA-C) Otitis externa Elevated homocysteine Right leg DVT Dyslipidemia Uncontrolled type 2 diabetes mellitus with hyperglycemia Family History Father Brain cancer Throat cancer Diabetes Social History (Updated 11/08/24 @ 13:22 by Estefania Diop CMA) Household Members: Significant Other Housing: House Housing Other:: 2 family house Alcohol intake: current Alcohol intake frequency: holidays/special occasions only Patient Tobacco Use Status: Never used Tobacco e-Cigarette/Vaping Use: Never Used Second Hand Smoke Exposure: Yes Substance Use Type: Marijuana Current occupational status: employed 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 1. Little interest or pleasure in doing things: not at all 6. Feeling bad about yourself - or that you are a failure or have let yourself or your family down: not at all Source: Developed by Drs. Aquilino Hargrove, Xuan Monroe, Leonardo Anaya and colleagues, with an educational wilmar from [employer]. Thrive Questionnaire Date Thrive assessed: 11/08/24 I am a: Patient What is your living situation today?: I have a steady place to live Within the past 12 months, did the food you bought not last and you didn't have the money to get more?: Sometimes True Within the past 12 months, did you worry whether your food would run out before you got money to buy more?: Never true Do you have trouble paying for medicines?: No Do you have trouble getting transportation to medical appointments?: No Do you have trouble paying your heating and electricity bill?: No Do you have trouble taking care of your child, family member or friend?: No Do you have trouble with day-to-day activities such as bathing, preparing meals, shopping, managing finances, etc.?: No Are you currently unemployed and looking for a job?: No Are you interested in more education?: Yes Please select the resources that you would like help with: None Currently or been in a relationship where the following occur: I choose not to answer THRIVE Score: 1 AUDIT C Alcohol Use Questionnaire (AUDIT-C) 1. How often do you have a drink containing alcohol?: 2-4 times a month 2. How many drinks containing alcohol do you have on a typical day when you are drinking?: 5 or 6 3. How often do you have six or more drinks on one occasion?: Never Total Score: 4 MARIO-7 AMB Questionnaire MARIO-7 Date MARIO - 7 assessed: 11/30/23 Source: Developed by Drs. Aquilino Hargrove, Xuan Monroe, Leonardo Anaya and colleagues, with an educational wilmar from [employer]. Physical exam (Primary Care) Vital Signs: Last Vital Signs Pulse 98 11/08/24 13:18 Resp 14 11/08/24 13:18 BP 126/84 11/08/24 13:18 BMI result Body Mass Index 42.8 Tobacco/Smoking Status: Tobacco use Status Tobacco use date assessed 11/08/24 11/08/24 13:21 Patient Tobacco Use Status Never used Tobacco 11/08/24 13:22 e-Cigarette/Vaping Use Never Used 11/08/24 13:22 Thrive Assessment: Date of Thrive Assessment Date Thrive assessed 11/08/24 11/08/24 13:22 Currently or been in a relationship where the following occur: I choose not to answer Const Orientation/consciousness: patient oriented x3 HENMT Ears: hearing grossly normal bilaterally Neck Thyroid: Thyroid normal Lymphatic: no lymphadenopathy noted Resp Auscultation: clear to auscultation bilaterally Cardio Rate: regular rate Rhythm: regular rhythm Heart sounds: S1 normal heart sound present and S2 normal heart sound present GI Inspection: Yes normal to inspection Palpation (GI): Soft to palpation and Other GI palpation findings present (nontender, no cva tenderness) Auscultation: normoactive bowel sounds Rectal Exam - Male: Yes deferred Skin General skin exam: no rashes or lesions noted Neuro General: patient oriented x3, gait normal and no focal motor deficits Results Reviewed Results Reviewed: Conclusions: - Normal left ventricular size, thickness, systolic function, and wall motion. The visually estimated ejection fraction is between 55-60%. Diastolic function is normal for age. - Normal right ventricular cavity size and systolic function. - There is mild dilatation of the ascending aorta measuring 3.60 cm. Exercise stress test with exercise 6 mins 18 secs of Ba Protocol, achieving 91% MPHR, with reports of mild SOB, no chest pain, with isolated PVCs, with normotensive response to exercise. Without EKG changes meeting criteria for ischemia. In recovery, breathing returned to baseline. Test reviewed with Dr. Hsu. Coding Level of Care Code Est Pt Level 4 (85894) Complex EM visit Add On G2211 Diagnoses Dyslipidemia E78.5 Controlled type 2 diabetes mellitus without complication, without long-term current use of insulin E11.9 Diabetes mellitus extermination inspector insulin use: without shelter use Severe obesity (BMI >= 40) E66.01 Blood in stool K92.1 Assessment & Plan Assessment & Plan (1) Dyslipidemia: Code(s): E78.5 - Hyperlipidemia, unspecified Category: Medical Plan: We will monitor. Labs ordered (2) Controlled type 2 diabetes mellitus without complication: Code(s): E11.9 - Type 2 diabetes mellitus without complications Category: Medical Qualifiers: Diabetes mellitus shelter insulin use: without extermination inspector use Qualified Code(s): E11.9 - Type 2 diabetes mellitus without complications Plan: Increase Mounjaro to 7.5 mg. Diabetes is very well-controlled. He will let me know if he develops any hypoglycemia. (3) Severe obesity (BMI >= 40): Code(s): E66.01 - Morbid (severe) obesity due to excess calories Category: Medical Plan: As above (4) Blood in stool: Code(s): K92.1 - Melena Category: Medical Plan: Labs ordered. Referral to GI. He will contact me if symptoms start up again or if there is any changes or worsening in symptoms. Orders: Orders Complete Blood Count Auto Diff 11/08/24 E11.9 - Type 2 diabetes mellitus without complications, E66.01 - Morbid (severe) obesity due to excess calories, E78.5 - Hyperlipidemia, unspecified Comprehensive Met. Panel 11/08/24 E11.9 - Type 2 diabetes mellitus without complications, E66.01 - Morbid (severe) obesity due to excess calories, E78.5 - Hyperlipidemia, unspecified Hemoglobin A1c 11/08/24 E11.9 - Type 2 diabetes mellitus without complications, E66.01 - Morbid (severe) obesity due to excess calories, E78.5 - Hyperlipidemia, unspecified, R73.01 - Impaired fasting glucose TSH reflex Free T4 11/08/24 E11.9 - Type 2 diabetes mellitus without complications, E66.01 - Morbid (severe) obesity due to excess calories, E78.5 - Hyperlipidemia, unspecified Lipid Panel 11/08/24 E11.9 - Type 2 diabetes mellitus without complications, E66.01 - Morbid (severe) obesity due to excess calories, E78.5 - Hyperlipidemia, unspecified Referrals Gastroenterology Referral K92.1 - Melena Medications: New tirzepatide (Mounjaro) 7.5 mg (0.5 mL) subcut QWEEK 2 mL 5RF Discontinued tirzepatide (Mounjaro) Discontinued Reason: Doctor's Order 5 mg (0.5 mL) subcut QWEEK 2 mL 3RF
[2024-11-08 13:18] VITALS: BP 126/84; PULSE 98; RESP 14; BMI 42.8
== END 2024-11-08 13:43 | disposition home or self-care (01) ==
LOC: HO.HMCFM 13:03
PROVIDERS: PCP Physician Assistant; Visit Provider Physician Assistant
DX: E11.9 Type 2 diabetes mellitus without complications (principal); E66.01 Morbid (severe) obesity due to excess calories; Z68.41 Body mass index [BMI] 40.0-44.9, adult; E78.5 Hyperlipidemia, unspecified; K92.1 Melena

== ENCOUNTER → 2024-11-08 13:02 | Outpatient (BNVA) | payer BC, SELFPAY | PROVIDERS: PCP Physician Assistant; Visit Provider Physician Assistant | DX: Z13.89 Encounter for screening for other disorder (principal) ==

== ENCOUNTER 2024-11-08 13:47 | Outpatient (REF) | payer BC, SELFPAY ==
[2024-11-08 17:42] LABS: MANUAL DIFF FLAG NO
[2024-11-08 17:57] LABS: Basophils Percent Auto 0.5 % (0-2); Eosinophils Absolute Auto 0.2 X10*3/uL (0.0-0.4); Eosinophils Percent Auto 2.6 % (0-4); Hemoglobin 15.2 g/dl (14.0-18.0); Imm Gran Abs Auto 0.02 X10*3/uL (0.00-0.03); Imm Gran Pct Auto 0.3 % (0.0-0.4); Lymphocytes Absolute Auto 2.4 X10*3/uL (1.2-4.9); Lymphocytes Percent Auto 29.9 % (20-40); Mean Corpuscular HGB Conc 34.5 g/dl (31.0-36.0); Mean Corpuscular Hemoglobin 27.7 pg (27.0-33.0); Mean Corpuscular Volume 80.1 fL (80.0-98.0); Mean Platelet Volume 10.2 fL (9.4-12.4); Monocytes Absolute Auto 0.7 X10*3/uL (0.1-1.2); Monocytes Percent Auto 8.4 % (2-11); Neutrophils Absolute Auto 4.7 x10*3/uL (2.0-8.3); Neutrophils Percent Auto 58.3 % (45-73); Platelet Count 266 X10*3/uL (160-400); Red Blood Count 5.49 X10*6/uL (4.60-5.80)
[2024-11-08 18:09] LABS: Estimated Average Glucose 105 mg/dL; Hemoglobin A1C 137.0045 umol/L; Hemoglobin A1c % 5.3 % (<6.0); Total Hemoglobin (HGBA1C) 3937.4891 umol/L
[2024-11-08 18:19] LABS: Alanine Aminotransferase 18 U/L (0-40); Alkaline Phosphatase 82 U/L (39-117); Anion Gap 12 (12-20); Aspartate Amino Transferase 33 U/L (5-37); Bilirubin Total 0.4 mg/dL (0.0-1.0); Blood Urea Nitrogen 11 mg/dL (9-16); Calcium 9.2 mg/dL (8.4-10.2); Carbon Dioxide 22 mmol/L (22-29); Chloride 108 mmol/L (96-108); Cholesterol 76 mg/dL (<200); Estimated Glomerular Filt Rate > 60; Glucose Random 87 mg/dL (60-115); HDL Cholesterol 32 mg/dL (>40); LDL Cholesterol Calculated 29 mg/dL (<100); Sodium 138 mmol/L (135-145); Total Protein 7.5 g/dL (6.5-8.0); Triglycerides 79 mg/dL (<150)
[2024-11-08 18:24] LABS: TSH reflex Free T4 1.73 uIU/mL (0.32-4.0)
== END 2024-11-08 13:48 | disposition home or self-care (01) ==
LOC: HO.WFDLDS 13:47
PROVIDERS: Visit Provider Physician Assistant
DX: E66.01 Morbid (severe) obesity due to excess calories (principal); E78.5 Hyperlipidemia, unspecified; E11.9 Type 2 diabetes mellitus without complications
CPT/HCPCS: 36415; 80053; 80061; 83036; 84443; 85025

== ENCOUNTER → 2024-11-15 07:52 | Outpatient (REF) | payer BC, SELFPAY | LOC: HO.SL 07:52 | PROVIDERS: PCP Physician Assistant; Visit Provider Physician Assistant | DX: R06.81 Apnea, not elsewhere classified (principal); R06.83 Snoring | CPT/HCPCS: 95806 ==

== ENCOUNTER → 2024-11-15 08:01 | Outpatient (BNV) | payer BC, SELFPAY | PROVIDERS: PCP Physician Assistant; Visit Provider Internal Medicine | DX: R06.83 Snoring (principal) | CPT/HCPCS: 95806 ==

== ENCOUNTER 2024-12-11 10:55 | Outpatient (REF) | payer BC, SELFPAY ==
--- NOTE | ~2024-12-11 | US_ITS ---
EXAMINATION: US TRIPLEX LOWER EXTREMITY, LEFT CLINICAL INFORMATION: Follow-up left lower extremity deep vein thrombosis COMPARISON: September 28, 2023 TECHNIQUE: Color-flow triplex imaging with spectral analysis and compression Doppler were performed on the left lower extremity. FINDINGS: Respiratory variation, normal compression and augmented flow are noted throughout the left lower extremity. The visualized common femoral vein, superficial femoral vein, profunda femoral vein, popliteal vein and midcalf peroneal and posterior tibial venous segments show no evidence of deep venous thrombosis. US/US venous duplex LE IMPRESSION: Resolved deep venous thrombosis involving the left lower extremity. Electronically signed by: Reinaldo Alvarado MD 12/11/2024 11:37 AM EDT
== END 2024-12-11 10:56 | disposition home or self-care (01) ==
LOC: HO.US 10:55
PROVIDERS: PCP Physician Assistant; Visit Provider Internal Medicine
DX: I82.402 Acute embolism and thrombosis of unspecified deep veins of left lower extremity (principal)
CPT/HCPCS: 93971

== ENCOUNTER → 2024-12-11 10:57 | Outpatient (BNV) | payer BC, SELFPAY | PROVIDERS: PCP Physician Assistant; Visit Provider Radiology Diagnostic Radiology | DX: Z86.718 Personal history of other venous thrombosis and embolism (principal) | CPT/HCPCS: 93971 ==

== ENCOUNTER 2025-01-18 12:13 | Outpatient (AMB) | payer BC, SELFPAY ==
[2025-01-18 12:18] VITALS: BP 110/74; PULSE 87; TEMP 36.7; O2SAT 97; BMI 43.2
--- NOTE | 2025-01-18 12:18 | AM.OFFWIN_ITS ---
Intake Vital Signs 01/18/25 12:18 Height 6 ft 1 in Weight 327 lb 6 oz BMI 43.2 BP 110/74 Blood Pressure Location Rt brachial Position Sitting Pulse 87 Pulse Source Pulse Oximeter Temp 98.0 F Temp Source Oral Pulse Oximetry (%) 97 Oxygen Delivery Method Room Air Intake Visit Reasons: EP-rt ankle pain & swollen Patient Tobacco Use Status: Never used Tobacco Guest Relations Receptionist Required: No Allergies No Known Allergies Allergy (Mild, Verified 01/18/25 12:25) NONE Do you need a note to return to daycare/school/sports/work: No HPI HPI Comments History of Present Illness Details This is a 39-year-old male with a past medical history of DVT currently maintained on Eliquis, hyperlipidemia and [id number] diabetes presenting for evaluation of right ankle pain and swelling that first started on Tuesday. He denies any injury or trauma preceeding the onset of his symptoms; he states his fiancee first noticed swelling on his lateral right ankle on Tuesday which resolved on Tuesday. Patient noticed swelling again on evening and woke up this morning with an aching and dull discomfort in his right lateral ankle. Patient has not taken any medication for treatment of his discomfort and denies any radiation of pain into his right calf or right foot. He states that his pain is worse with ambulation. [facility] Medical History (Updated 01/18/25 @ 12:49 by Audrey Gonzales PA-C) Otitis externa Elevated homocysteine Right leg DVT Dyslipidemia Uncontrolled type 2 diabetes mellitus with hyperglycemia Family History Father Brain cancer Throat cancer Diabetes Social History Household Members: Significant Other Housing: House Housing Other:: 2 family house Alcohol intake: current Alcohol intake frequency: holidays/special occasions only Patient Tobacco Use Status: Never used Tobacco e-Cigarette/Vaping Use: Never Used Second Hand Smoke Exposure: Yes Substance Use Type: Marijuana Current occupational status: employed 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 Current occupational exposures/hazards: No Gender identity: Male Cognitive needs: No Hearing needs: No Vision needs: Yes (glasses) Review of Systems Const All systems reviewed & are unremarkable except as noted in HPI and below Reports no additional complaints Eyes Reports no additional complaints ENT Reports no additional complaints Card Reports no additional complaints Resp Reports no additional complaints GI Reports no additional complaints Reports no additional complaints Musc Reports arthralgias (right ankle) and Denies limited range of motion Skin/Breast Reports system reviewed and no additional complaints, except as documented, D enies new lesions, Denies unusual bruising and Denies wounds Neuro Reports no additional complaints Psych Reports no additional complaints Physical Exam Vital Signs: Last Vital Signs Temp 98.0 F 01/18/25 12:18 Pulse 87 01/18/25 12:18 BP 110/74 01/18/25 12:18 Pulse Ox 97 01/18/25 12:18 Oxygen Delivery Method Room Air 01/18/25 12:18 BMI result Body Mass Index 43.2 Const General: cooperative, healthy appearing, comfortable, no acute distress, well developed, alert, awake and Physically active; No acute distress or ill appearing Nutritional Appearance: overweight Orientation/consciousness: patient oriented x3 Limitations: no limitations Skin Other: There is no erythema, warmth to touch or other cutaneous findings of the right ankle. Neuro General: patient oriented x3 Extrem Right lower extremity: full ROM (right ankle), edema (right lateral ankle overlying lateral malleolus) Details: non-pitting, lower leg (no right calf tenderness) and ankle Details: tenderness Location: of the lateral malleolus and other (calcaneofibular ligament); no ecchymosis and achilles tendon exam normal Psych Appearance: grossly normal Mental Status: mental status grossly normal Insight: Good insight present (Psych) Judgement: Good judgement present (Psych) Assessment & Plan Assessment & Plan (1) Right ankle tendonitis: Comment: Given there was no injury or trauma, imaging is deferred at this time. Code(s): M77.51 - Other enthesopathy of right foot and ankle Plan: Prednisone 40 mg QD x 4 days. Medications: New prednisone 40 mg (2 x 20 mg) PO DAILY 8 tabs 0RF Discontinued tirzepatide (Mounjaro) Discontinued Reason: Doctor's Order 7.5 mg (0.5 mL) subcut QWEEK 2 mL 5RF Coding Level of Care Code Est Pt Level 3 (55348) Diagnoses Right ankle tendonitis M77.51 Time Spent (min) 20
== END 2025-01-18 12:58 | disposition home or self-care (01) ==
PROVIDERS: PCP Physician Assistant; Visit Provider Physician Assistant
DX: M77.51 Other enthesopathy of right foot and ankle (principal)

== ENCOUNTER 2025-02-06 14:52 | Outpatient (AMB) | payer BC, SELFPAY ==
[2025-02-06 14:53] VITALS: BP 110/78; PULSE 72; BMI 43.0
--- NOTE | 2025-02-06 14:53 | MHC.OFFVIS ---
Vital Signs 02/06/25 14:53 Height 6 ft 1 in Weight 326 lb BMI 43.0 BP 110/78 Blood Pressure Location Rt radial Position Sitting Pulse 72 Pulse Source Auscultation Intake Visit Reasons: f/u labs /imaging review Allergies No Known Allergies Allergy (Mild, Verified 01/18/25 12:25) NONE Medication List - Last Reconciled 02/06/25 by Ashley Brown PA-C apixaban (Eliquis) 5 mg PO BID blood sugar diagnostic (FreeStyle Lite Strips) use daily As directed to check blood glucose blood-glucose meter (FreeStyle Lite Meter kit) Use daily As directed to check blood glucose omeprazole 20 mg PO DAILY rosuvastatin (Crestor) 5 mg PO DAILY tirzepatide (Mounjaro) 10 mg (0.5 mL) subcut QWEEK HPI HPI f/u labs /imaging review: Details: Patient is a 39-year-old male with a significant past medical history of previous right leg DVT, severe obesity, controlled type 2 diabetes presenting today for a follow up. Endo: Last A1c was normal. He is on Mounjaro 10 mg weekly. This has helped him with weight loss but he would like to go up on the dosage to see more benefit. Denies any hypoglycemic events. CV: Blood pressure today in the office is 110/78. He did have a recent echo which showed aortic dilatation. He is scheduled with Cardiology next week. He does have some intermittent chest tightness that gets better with belching. He did have a negative stress test earlier this year. Msk: Recently went to urgent care for right ankle pain and swelling. States that he was diagnosed with tendonitis. Was prescribed prednisone which helped the pain but did not resolve the swelling and he states also spike his blood sugars. Blood sugars have since normalized. He still has some swelling and some intermittent discomfort in the ankle when he bends his ankle. There was no trauma. No redness. No fevers or chills. He does also report that he is getting intermittent numb in his of his left arm. He states it seems like it is from the fingertips through the upper mid arm. It does not appear to be related to a joint. States it is not related to his neck because he does not feel any discomfort it he has not noticed any radiation from the neck down. He doubts that it is related to his shoulder, elbow or wrist. He says he has full range of motion. It is happening almost daily where he is getting this pins and needles and numbness feeling in his arm. He states that it will last quite a few minutes and sometimes longer. He will try to check his strength because it almost feels like it could be weak but he states his strength has been intact. He has not had any chest pain or shortness on breath with this. No rashes, insect bites. It can happen anytime of day. He states he is paying attention to if it is positional and he does not believe it is. Hematology: He was approved to go on 2.5 mg of Eliquis b.i.d. for prophylaxis. [facility] Medical History (Updated 02/06/25 @ 15:02 by Ashley Brown PA-C) Otitis externa Elevated homocysteine Right leg DVT Dyslipidemia Uncontrolled type 2 diabetes mellitus with hyperglycemia Family History Father Brain cancer Throat cancer Diabetes Social History Household Members: Significant Other Housing: House Housing Other:: 2 family house Alcohol intake: current Alcohol intake frequency: holidays/special occasions only Patient Tobacco Use Status: Never used Tobacco e-Cigarette/Vaping Use: Never Used Second Hand Smoke Exposure: Yes Substance Use Type: Marijuana Current occupational status: employed 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 Current occupational exposures/hazards: No Gender identity: Male Cognitive needs: No Hearing needs: No Vision needs: Yes (glasses) Physical Exam Const Orientation/consciousness: patient oriented x3 HEENT Ears: hearing grossly normal bilaterally Neck Thyroid: Thyroid normal Lymphatic: no lymphadenopathy noted Resp Auscultation: clear to auscultation bilaterally Cardio Rate: regular rate Rhythm: regular rhythm Heart sounds: S1 normal heart sound present and S2 normal heart sound present GI Inspection: Yes normal to inspection Palpation (GI): Soft to palpation and Other GI palpation findings present (nontender, no cva tenderness) Auscultation: normoactive bowel sounds Rectal Exam - Male: Yes deferred Skin General skin exam: no rashes or lesions noted Neuro General: patient oriented x3, gait normal, moves all extremities, no focal motor deficits and deep tendon reflexes 2+ bilaterally Motor exam (neuro): 5/5 motor strength present throughout Extrem General: Yes normal to inspection, Yes full ROM and Yes capillary refill normal Assessment & Plan Assessment & Plan (1) Right ankle tendonitis: Comment: Given there was no injury or trauma, imaging is deferred at this time. Code(s): M77.51 - Other enthesopathy of right foot and ankle Category: Medical Plan: X-ray ordered. We will follow up pending test results (2) Arm paresthesia, left: Code(s): R20.2 - Paresthesia of skin Category: Medical Plan: Labs and x-ray ordered. EMG ordered. Patient does appear neurovascularly intact. (3) Controlled type 2 diabetes mellitus without complication: Code(s): E11.9 - Type 2 diabetes mellitus without complications Category: Medical Plan: Continue current regimen. A1c ordered (4) Severe obesity (BMI >= 40): Code(s): E66.01 - Morbid (severe) obesity due to excess calories Category: Medical Plan: Continue with the Mounjaro 10 mg. Recently started the increased dosage. (5) Chest tightness: Code(s): R07.89 - Other chest pain Category: Medical Plan: Currently asymptomatic. Following with Cardiology. Orders: Orders NE electromyogram (EMG) Today R20.2 - Paresthesia of skin Complete Blood Count Auto Diff Today E11.9 - Type 2 diabetes mellitus without complications, E66.01 - Morbid (severe) obesity due to excess calories, R07.89 - Other chest pain, R20.2 - Paresthesia of skin Vitamin B12 and Folate Today E11.9 - Type 2 diabetes mellitus without complications, E66.01 - Morbid (severe) obesity due to excess calories, R07.89 - Other chest pain, R20.2 - Paresthesia of skin Ferritin Today E11.9 - Type 2 diabetes mellitus without complications, E66.01 - Morbid (severe) obesity due to excess calories, R07.89 - Other chest pain, R20.2 - Paresthesia of skin IRON PROFILE Today E11.9 - Type 2 diabetes mellitus without complications, E66.01 - Morbid (severe) obesity due to excess calories, R07.89 - Other chest pain, R20.2 - Paresthesia of skin Lyme IgG/IgM w/reflex to WB Today E11.9 - Type 2 diabetes mellitus without complications, E66.01 - Morbid (severe) obesity due to excess calories, R07.89 - Other chest pain, R20.2 - Paresthesia of skin Lipid Panel Today E78.5 - Hyperlipidemia, unspecified XR ankle RT min 3V Today M77.51 - Other enthesopathy of right foot and ankle NE nerve conduction velocity Today R20.2 - Paresthesia of skin XR elbow LT min 3V Today R20.2 - Paresthesia of skin XR shoulder LT min 2V Today M25.512 - Pain in left shoulder, R20.2 - Paresthesia of skin Comprehensive Met. Panel Today E11.9 - Type 2 diabetes mellitus without complications, E66.01 - Morbid (severe) obesity due to excess calories, R07.89 - Other chest pain, R20.2 - Paresthesia of skin Hemoglobin A1c Today E11.9 - Type 2 diabetes mellitus without complications, E66.01 - Morbid (severe) obesity due to excess calories, R07.89 - Other chest pain, R20.2 - Paresthesia of skin, R73.01 - Impaired fasting glucose TSH reflex Free T4 Today E11.9 - Type 2 diabetes mellitus without complications, E66.01 - Morbid (severe) obesity due to excess calories, R07.89 - Other chest pain, R20.2 - Paresthesia of skin Uric Acid Today E11.9 - Type 2 diabetes mellitus without complications, E66.01 - Morbid (severe) obesity due to excess calories, R07.89 - Other chest pain, R20.2 - Paresthesia of skin Medications: New apixaban (Eliquis) 2.5 mg PO BID 180 tabs 3RF Discontinued apixaban (Eliquis) Discontinued Reason: Doctor's Order 5 mg PO BID 60 tabs 1RF Coding Level of Care Code Est Pt Level 4 (70949) Complex EM visit Add On G2211 Diagnoses Right ankle tendonitis M77.51 Arm paresthesia, left R20.2 Controlled type 2 diabetes mellitus without complication E11.9 Severe obesity (BMI >= 40) E66.01 Chest tightness R07.89
--- OUTSIDE RECORDS SUMMARY | 2025-02-06 15:00 | XMS_ITS | Encounter Summary ---
Author Organization [facility] Address [address] [place] [address] Care Team Providers Care Assistant Professor Of Business Name Role Phone Bg Hernandez MD Primary Care Provider Unava ilable Encounter Details Date Type Department Care Team Description 11/16/2020 Pt. Referral Request [facility] MyChart [address] [place] [address] Md Lisa Social History Tobacco Use Types Packs/Day Years Used Date Smoking Tobacco: Former Cigarettes 1 3 Smokeless Tobacco: Never Comments:Quit 2011. Was smok ing 0.5 ppd - 1 ppd x 3 years. Alcohol Use Standard Drinks/Week Comments Yes 0 (1 standard drink = 0.6 oz pure alcohol) 1-2 drinks max a week, every other week Sex Assigned at Date Recorded Not on file documented as of this encounter Plan of Treatment Not on file documented as of this encounter Visit Diagnoses Not on filedocumented in this encounter Care Teams Assistant Professor Of Business Relationship Specialty Start Date End Date Bg Hernandez MD PCP - General Internal Medicine 03/20/19 documented as of this encounter
== END 2025-02-06 15:13 | disposition home or self-care (01) ==
LOC: HO.HMCFM 14:52
PROVIDERS: PCP Physician Assistant; Visit Provider Physician Assistant
DX: E11.9 Type 2 diabetes mellitus without complications (principal); E66.01 Morbid (severe) obesity due to excess calories; Z68.41 Body mass index [BMI] 40.0-44.9, adult; M77.51 Other enthesopathy of right foot and ankle; R20.2 Paresthesia of skin; R07.89 Other chest pain

== ENCOUNTER 2025-02-08 10:58 | Outpatient (REF) | payer BC, SELFPAY ==
--- NOTE | ~2025-02-08 | XR_ITS ---
CLINICAL HISTORY: R20.2 - Paresthesia of skin 3 view left elbow Comparison: None provided Findings: No acute fractures or dislocations. No significant arthritic change or erosions. No joint effusion. No radiopaque foreign body. There is soft tissue swelling posterior to the olecranon process. IMPRESSION: There is soft tissue swelling posterior to the olecranon process. This document has been electronically signed by: Angel Mcfadden DO on 02/08/2025 13:46:52
--- NOTE | ~2025-02-08 | XR_ITS ---
CLINICAL HISTORY: M77.51 - Other enthesopathy of right foot and ankle 3 view right ankle Comparison: None provided Findings: Well-corticated calcification inferior to the lateral malleolus. This is due to remote trauma. Mild degenerative changes of the ankle. Degenerative changes of the midfoot. Small ankle joint effusion. No radiopaque foreign body. IMPRESSION: Small ankle joint effusion. This document has been electronically signed by: Angel Mcfadden DO on 02/08/2025 13:50:37
--- NOTE | ~2025-02-08 | XR_ITS ---
CLINICAL HISTORY: M25.512 - Pain in left shoulder 4 view left shoulder Comparison: None provided Findings: No fractures or dislocations. No significant arthritic change. No erosions. No radiopaque foreign body. IMPRESSION: 1. No acute findings This document has been electronically signed by: Angel Mcfadden DO on 02/08/2025 13:42:22
--- OUTSIDE RECORDS SUMMARY | 2025-02-08 11:06 | XMS_ITS | Encounter Summary ---
Author Organization [facility] Address [address] [place] [address] Care Team Providers Care Dock Boss Name Role Phone Bg Hernandez MD Primary Care Provider Unava ilable Encounter Details Date Type Department Care Team Description 11/16/2020 Pt. Referral Request [facility] MyChart [address] [place] [address] Md Lisa Social History Tobacco Use Types [...] on filedocumented in this encounter Care Teams Dock Boss Relationship Specialty Start Date End Date Bg Hernandez MD PCP - General Internal Medicine 03/20/19 documented as of this encounter
[2025-02-08 11:14] LABS: MANUAL DIFF FLAG NO
[2025-02-08 11:42] LABS: Hematocrit 43.8 % (42.0-52.0); Hemoglobin 15.3 g/dl (14.0-18.0); Imm Gran Abs Auto 0.01 X10*3/uL (0.00-0.03); Imm Gran Pct Auto 0.1 % (0.0-0.4); Lymphocytes Absolute Auto 2.0 X10*3/uL (1.2-4.9); Mean Corpuscular HGB Conc 34.9 g/dl (31.0-36.0); Mean Corpuscular Hemoglobin 27.8 pg (27.0-33.0); Mean Corpuscular Volume 79.5 fL (80.0-98.0); NRBC Abs Auto 0.000 X10*3/uL (0.0-0.012); NRBC Pct Auto 0.0 /100WBC (0.0-0.2); Platelet Count 252 X10*3/uL (160-400); Red Blood Count 5.51 X10*6/uL (4.60-5.80); White Blood Count 7.7 X10*3/uL (4.8-10.8)
[2025-02-08 11:49] LABS: Hemoglobin A1C 143.4912 umol/L; Total Hemoglobin (HGBA1C) 4016.1182 umol/L
[2025-02-08 12:10] LABS: Alanine Aminotransferase 21 U/L (0-40); Albumin Level 4.1 g/dL (3.5-5.0); Alkaline Phosphatase 80 U/L (39-117); Anion Gap 11 (12-20); Aspartate Amino Transferase 28 U/L (5-37); Blood Urea Nitrogen 8 mg/dL (9-16); Calcium 9.1 mg/dL (8.4-10.2); Carbon Dioxide 25 mmol/L (22-29); Chloride 106 mmol/L (96-108); Cholesterol 68 mg/dL (<200); Estimated Glomerular Filt Rate > 60; HDL Cholesterol 30 mg/dL (>40); Iron 60 mcg/dL (45-160); Percent Iron Saturation 25 % (15-50); Potassium 4.1 mmol/L (3.3-5.1); Sodium 138 mmol/L (135-145); Total Iron Binding Capacity 236 mcg/dL (228-428); Total Protein 7.1 g/dL (6.5-8.0); Triglycerides 73 mg/dL (<150); Unsaturated Iron Binding 176 ug/dL; Uric Acid 7.0 mg/dL (3.4-7.0)
[2025-02-08 12:26] LABS: Ferritin 228 ng/mL (20-250)
[2025-02-08 12:39] LABS: Folate 9.4 ng/mL (> or = 4.0); Vitamin B12 211 pg/mL (200-900)
[2025-02-09 07:44] LABS: Lyme Abs Screen <0.90 index
== END 2025-02-08 10:59 | disposition home or self-care (01) ==
LOC: HO.LAB 10:58
PROVIDERS: Visit Provider Physician Assistant
DX: Z01.84 Encounter for antibody response examination (principal); M77.51 Other enthesopathy of right foot and ankle; M25.512 Pain in left shoulder; E11.9 Type 2 diabetes mellitus without complications; E66.01 Morbid (severe) obesity due to excess calories; R20.2 Paresthesia of skin; R07.89 Other chest pain; E78.5 Hyperlipidemia, unspecified
CPT/HCPCS: 36415; 73030; 73080; 73610; 80053; 80061; 82607; 82728; 82746; 83036; 83540; 84443; 84550; 85025; 86617; 86618

== ENCOUNTER → 2025-02-08 11:16 | Outpatient (BNV) | payer BC, SELFPAY | PROVIDERS: Visit Provider Family Medicine | DX: M25.512 Pain in left shoulder (principal); M25.471 Effusion, right ankle; M70.22 Olecranon bursitis, left elbow | CPT/HCPCS: 73030; 73080; 73610 ==

== ENCOUNTER 2025-02-13 13:57 | Outpatient (AMB) | payer BC, SELFPAY ==
[2025-02-13 13:58] VITALS: BP 118/76; PULSE 74; BMI 42.8
--- NOTE | 2025-02-13 13:58 | MHC.OFFVIS ---
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 ectasia Intake Note: New patient post echo and stress with ekg c/o chest wagoner 2x a week burps and goes away Driller Brake Lining Required: No Allergies No Known Allergies Allergy (Mild, Verified 01/18/25 12:25) NONE Medication List - Last Reconciled 02/13/25 by Eder Heredia MD apixaban (Eliquis) 2.5 mg PO BID blood sugar diagnostic (FreeStyle Lite Strips) use daily As directed to check blood glucose blood-glucose meter (FreeStyle Lite Meter kit) Use daily As directed to check blood glucose cyanocobalamin (vitamin B-12) 1,000 mcg PO DAILY omeprazole 20 mg PO DAILY PRN tirzepatide (Mounjaro) 10 mg (0.5 mL) subcut QWEEK HPI Comments Details: Thank you for referring Julio in cardiology consultation today for chest pain. Patient is a pleasant 40-year-old male who had prior history of morbid obesity and since been started on GLP 1 antagonist has lost about 100 lb and feeling better. Patient about a year or 2 ago developed a DVT in his right leg and was started on Eliquis therapy. Recently after seeing hematology is Eliquis was reduced for prophylaxis dose of 2.5 mg b.i.d.. He is not sure as to what exact cause of his DVT is but then apparently elevated homocystine levels noted in his chart. Patient has been having symptoms of chest tightness which she describes as tightness in his left side of the chest radiating right-sided chest mostly at rest while he is watching television. Symptoms usually resolve after burping. Patient for that had undergone a stress test in September which had moderate workload for his age was negative for ischemia. He also underwent echocardiogram which showed normal LV ejection fraction without much left ventricular hypertrophy but showed upper limits of normal ascending aortic size at 3.6 cm. This would be normal for his body surface area. Patient is referred here for further evaluation of his chest pain. Patient says he takes omeprazole once every 3 days for acid reflux disease when he feels burning discomfort. However does not take it on a continuous basis. He had prior history of hyperlipidemia for which she was on rosuvastatin but after losing weight and recent lipid panel is showing significantly improved lipid panel his rosuvastatin has been stopped. He denies any palpitations, lightheadedness, syncope. No exertional chest pain. No significant worsening shortness of breath, orthopnea, PND. [facility] Medical History Otitis externa Elevated homocysteine Right leg DVT Dyslipidemia Uncontrolled type 2 diabetes mellitus with hyperglycemia Family History Father Brain cancer Throat cancer Diabetes Social History Household Members: Significant Other Housing: House Housing Other:: 2 family house Alcohol intake: current Alcohol intake frequency: holidays/special occasions only Patient Tobacco Use Status: Never used Tobacco e-Cigarette/Vaping Use: Never Used Second Hand Smoke Exposure: Yes Substance Use Type: Marijuana Current occupational status: employed 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 Current occupational exposures/hazards: No Gender identity: Male Cognitive needs: No Hearing needs: No Vision needs: Yes (glasses) Review of Systems Const Denies chills, Denies daytime sleepiness, Denies fatigue, Denies fever(s), Denies frequent falls, Denies poor appetite, Denies snoring, Denies stops breathing during sleep, Denies weakness, Denies weight gain and Denies weight loss Eyes Denies loss of vision ENT Denies dizziness and Denies hearing loss Card Denies chest pain, Denies claudication, Denies leg edema, Denies lightheadedness, Denies palpitations, Denies dyspnea, Denies dyspnea on exertion and Denies orthopnea Resp Denies cough, Denies excessive phlegm production, Denies dyspnea, Denies dyspnea on exertion, Denies snoring and Denies wheezing GI Denies abdominal pain, Denies hematochezia, Denies change in bowel habits, Denies nausea and Denies vomiting Denies dysuria and Denies urinary frequency Musc Denies arthralgias, Denies muscle weakness and Denies numbness Skin/Breast Denies nail changes and Denies rash Neuro Denies Abnormal speech present, Denies dizziness, Denies frequent falls, Denies loss of vision, Denies memory loss, Denies numbness and Denies weakness Psych Denies depression and Denies memory loss Endo Denies fatigue and Denies palpitations Sudarshan/Lymph Reports easy bruising and Reports other (anemia) Aller/Immun Denies wheezing Physical Exam Vital Signs: Last Vital Signs Pulse 74 02/13/25 13:58 BP 118/76 02/13/25 13:58 BMI result Body Mass Index 42.8 Const General: cooperative, comfortable, no acute distress, alert and awake Nutritional Appearance: obese morbidly obese Orientation/consciousness: patient oriented x3 Limitations: no limitations HEENT Head: Yes normocephalic and Yes atraumatic Neck Neck: Yes trachea midline, Yes supple and Yes no JVD Resp Effort & Inspection: normal respiratory effort Auscultation: clear to auscultation bilaterally Cardio Jugular venous distension: no JVD Palpation: normal PMI Rate: regular rate Rhythm: regular rhythm Heart sounds: S1 normal heart sound present, S2 normal heart sound present, no click, no gallops, no murmurs and no rubs GI Auscultation: normal bowel sounds Skin General skin exam: no rashes or lesions noted Neuro General: patient oriented x3 and no focal motor deficits Speech: No Abnormal speech present Extrem General: Yes no clubbing, cyanosis or edema Office Procedures EKG Details: EKG shows normal sinus rhythm with left axis deviation with minimal voltage criteria for LVH [id number], Complete Assessment & Plan Assessment & Plan (1) Chest tightness: Code(s): R07.89 - Other chest pain Category: Medical Plan: Patient with chest tightness which is very atypical. His stress test was within normal limits at moderate workload and achieved a good target heart rate. This most likely appears to be GI in origin. Discussed with him that issue follow up with GI for possible endoscopy to evaluate for acid reflux related damage. Encouraged to continue current aggressive weight loss program. His cholesterol is significantly improved on low-dose Crestor therapy in his currently off it. Continue monitor it in 3 months to see if there is any significant elevation post stopping statin. Prior DVT on currently prophylactic doses of Eliquis. Follow-up with Hematology. (2) Aortic dilatation: Comment: Measured at 3.6 cm on last echocardiogram is within normal limits for his body surface area Code(s): I77.819 - Aortic ectasia, unspecified site Category: Medical Plan: I do not think patient has a ascending aortic dilatation based on the size and based on his body surface area. This is most likely within normal limits. No further workup or follow-up is indicated. He is encouraged to continue participate in aggressive weight loss program which she is currently doing. He is encouraged to increase his exercise activity and participate in regular aerobic training. Will follow up in the clinic if need be. Thank you for allowing me to partake in his care Coding Level of Care Code New Pt Level 4 (78234) Complex EM visit Add On G2211 Diagnoses Chest tightness R07.89 Aortic dilatation I77.819 CPT Codes EKG - CPT: 98252-[id number], Complete ([id number])
--- OUTSIDE RECORDS SUMMARY | 2025-02-13 14:54 | XMS_ITS | Encounter Summary ---
Author Organization [facility] Address [address] [place] [address] Care Team Providers Care Non Licensed Nuclear Plant Operator Name Role Phone Bg Hernandez MD Primary Care Provider Unava ilable Encounter Details Date Type Department Care Team Description 11/16/2020 Pt. Referral Request [facility] MyChart [address] [place] [address] Md Lisa Social History Tobacco Use Types [...] on filedocumented in this encounter Care Teams Non Licensed Nuclear Plant Operator Relationship Specialty Start Date End Date Bg Hernandez MD PCP - General Internal Medicine 03/20/19 documented as of this encounter
== END 2025-02-13 15:27 | disposition home or self-care (01) ==
LOC: HO.HCS 13:57
PROVIDERS: PCP Physician Assistant; Visit Provider Internal Medicine Cardiovascular Disease
DX: R07.89 Other chest pain (principal); I77.819 Aortic ectasia, unspecified site
CPT/HCPCS: 93010; 99204

== ENCOUNTER → 2025-02-13 13:57 | Outpatient (BNVA) | payer BC, SELFPAY | PROVIDERS: PCP Physician Assistant; Visit Provider Internal Medicine Cardiovascular Disease | DX: R07.89 Other chest pain (principal); I77.819 Aortic ectasia, unspecified site | CPT/HCPCS: 93005 ==

== ENCOUNTER 2025-03-19 08:14 | Outpatient (REF) | payer BC, SELFPAY ==
--- NOTE | 2025-03-19 08:14 | EMG_ITS ---
Chief complaint: Left hand numbness Reason for referral: Evaluate for carpal tunnel Referred by:?MEL Gerber Procedure done: Left upper extremity NCS/EMG Left median and ulnar motor and sensory studies were performed left radial sensory and median and lateral antecubital brachial sensory studies were performed an EMG needle examination was performed. No significant median nerve abnormality was noted. There was mild slowing of ulnar conduction velocity across elbow. Impression: Mild left ulnar neuropathy across cubital tunnel MTDD
== END 2025-03-19 08:15 | disposition home or self-care (01) ==
LOC: HO.NEURO 08:14
PROVIDERS: PCP Physician Assistant; Visit Provider Physician Assistant
DX: R20.2 Paresthesia of skin (principal)
CPT/HCPCS: 95886; 95910

== ENCOUNTER → 2025-03-19 08:14 | Outpatient (BNV) | payer BC, SELFPAY | PROVIDERS: PCP Physician Assistant; Visit Provider Psychiatry & Neurology Neurology | DX: R20.2 Paresthesia of skin (principal) | CPT/HCPCS: 95886; 95909 ==

== ENCOUNTER 2025-05-15 13:55 | Outpatient (AMB) | payer BC, SELFPAY ==
--- NOTE | 2025-05-15 13:59 | A.OFFPC_ITS ---
Vital Signs 05/15/25 14:02 Height 6 ft 1 in Weight 340 lb 8 oz BMI 44.9 BP 108/88 Blood Pressure Location Rt brachial Position Sitting Respiration 14 Pulse 73 Pulse Source Pulse Oximeter Temp 97.8 F Temp Source Oral Pulse Oximetry (%) 96 Oxygen Delivery Method Room Air Intake Visit Reasons: meds and labs Intake Note: Medication follow up. Stopped Mounjaro a 3 weeks ago due to constipation possible from medication. Also, experiencing feeling of fluid in the left ear for about three weeks every other night, itching in right ear. Allergies No Known Allergies Allergy (Mild, Verified 01/18/25 12:25) NONE Medication List - Last Reconciled 05/15/25 by Ashley Brown PA-C apixaban (Eliquis) 2.5 mg PO BID blood sugar diagnostic (FreeStyle Lite Strips) use daily As directed to check blood glucose blood-glucose meter (FreeStyle Lite Meter kit) Use daily As directed to check blood glucose cyanocobalamin (vitamin B-12) 1,000 mcg PO DAILY omeprazole 20 mg PO DAILY PRN Tobacco use date assessed: 11/08/24 Dental Screening Dental Screen Date: 11/30/23 HPI meds and labs HPI Details Patient is a 40-year-old male with a significant past medical history of previous right leg DVT, severe obesity, controlled type 2 diabetes presenting today for a follow up. Endo: Last A1c was normal at 5.5. He is on Mounjaro 10 mg weekly. This has helped him with weight loss but he has also experienced some constipation with this. He recently stopped the medication for a few weeks and did gain between 20 and 30 lb. He states that he had significant constipation so had to stop it and felt better but he has a little upset with himself for the weight gain. He would like to go back on Mounjaro CV: Blood pressure today in the office is 108/88. He did have an echo which showed aortic dilatation. He is following with Cardiology. GI: seeing GI 06/07. Msk: following with ortho. Hematology: He was approved to go on 2.5 mg of Eliquis b.i.d. for prophylaxis. [facility], [facility] Medical History Otitis externa Elevated homocysteine Right leg DVT Dyslipidemia Uncontrolled type 2 diabetes mellitus with hyperglycemia Family History Father Brain cancer Throat cancer Diabetes Social History (Updated 05/15/25 @ 14:11 by Estefania Diop CMA) Household Members: Significant Other Housing: House Housing Other:: 2 family house Alcohol intake: current Alcohol intake frequency: holidays/special occasions only Patient Tobacco Use Status: Never used Tobacco e-Cigarette/Vaping Use: Never Used Second Hand Smoke Exposure: Yes Substance Use Type: Marijuana Current occupational status: employed 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 Current occupational exposures/hazards: No Gender identity: Male Cognitive needs: No Hearing needs: No Vision needs: Yes (glasses) Questionnaire Thrive Questionnaire Date Thrive assessed: 08/01/24 I am a: Patient What is your living situation today?: I have a steady place to live Within the past 12 months, did the food you bought not last and you didn't have the money to get more?: Sometimes True Within the past 12 months, did you worry whether your food would run out before you got money to buy more?: Never true Do you have trouble paying for medicines?: No Do you have trouble getting transportation to medical appointments?: No Do you have trouble paying your heating and electricity bill?: No Do you have trouble taking care of your child, family member or friend?: No Do you have trouble with day-to-day activities such as bathing, preparing meals, shopping, managing finances, etc.?: No Are you currently unemployed and looking for a job?: No Are you interested in more education?: Yes Please select the resources that you would like help with: None Currently or been in a relationship where the following occur: I choose not to answer THRIVE Score: 1 MARIO-7 AMB Questionnaire MARIO-7 Date MARIO - 7 assessed: 11/30/23 Source: Developed by Drs. Aquilino Hargrove, Xuan Monroe, Leonardo Anaya and colleagues, with an educational wilmar from [employer]. Physical exam (Primary Care) Vital Signs: Last Vital Signs Temp 97.8 F 05/15/25 14:02 Pulse 73 05/15/25 14:02 Resp 14 05/15/25 14:02 BP 108/88 05/15/25 14:02 Pulse Ox 96 05/15/25 14:02 Oxygen Delivery Method Room Air 05/15/25 14:02 BMI result Body Mass Index 44.9 Tobacco/Smoking Status: Tobacco use Status Tobacco use date assessed 11/08/24 05/15/25 14:00 Patient Tobacco Use Status Never used Tobacco 05/15/25 14:11 e-Cigarette/Vaping Use Never Used 05/15/25 14:11 Thrive Assessment: Date of Thrive Assessment Date Thrive assessed 08/01/24 05/15/25 14:00 Currently or been in a relationship where the following occur: I choose not to answer Const Orientation/consciousness: patient oriented x3 HENMT Ears: hearing grossly normal bilaterally Neck Thyroid: Thyroid normal Lymphatic: no lymphadenopathy noted Resp Auscultation: clear to auscultation bilaterally Cardio Rate: regular rate Rhythm: regular rhythm Heart sounds: S1 normal heart sound present and S2 normal heart sound present GI Inspection: Yes normal to inspection Palpation (GI): Soft to palpation and Other GI palpation findings present (nontender, no cva tenderness) Auscultation: normoactive bowel sounds Rectal Exam - Male: Yes deferred Skin General skin exam: no rashes or lesions noted Neuro General: patient oriented x3, gait normal and no focal motor deficits Results AMB Hemoglobin A1c AMB Hemoglobin A1c 5.5 % Last Edit by Estefania Diop CMA on 05/15/25 14:14 Results Reviewed Results Reviewed: Laboratory Last Values Hgb A1c (Clinic) 5.5 % (4.0-6.0) 05/15/25 14:09 Coding Level of Care Code Est Pt Level 4 (72191) Complex EM visit Add On G2211 Diagnoses Controlled type 2 diabetes mellitus without complication E11.9 Constipation K59.00 Dyslipidemia E78.5 Assessment & Plan Assessment & Plan (1) Controlled type 2 diabetes mellitus without complication: Code(s): E11.9 - Type 2 diabetes mellitus without complications Category: Medical Plan: Well-controlled We will try a lower dose of Mounjaro 5 mg. He will let me know how he does Advised to start a stool softener (2) Constipation: Code(s): K59.00 - Constipation, unspecified Category: Medical Plan: Has a follow up scheduled with GI (3) Dyslipidemia: Code(s): E78.5 - Hyperlipidemia, unspecified Category: Medical Plan: We will monitor labs. Orders: Orders AMB Hemoglobin A1c Today E11.9 - Type 2 diabetes mellitus without complications Medications: New tirzepatide (Mounjaro) 5 mg (0.5 mL) subcut QWEEK 2 mL 4RF docusate sodium (Colace) 100 mg PO DAILY 90 caps 0RF cetirizine (Zyrtec) 10 mg PO DAILY 30 tabs 1RF
[2025-05-15 14:02] VITALS: BP 108/88; PULSE 73; RESP 14; TEMP 36.6; O2SAT 96; BMI 44.9
== END 2025-05-15 14:35 | disposition home or self-care (01) ==
LOC: HO.HMCFM 13:56
PROVIDERS: PCP Physician Assistant; Visit Provider Physician Assistant
DX: E11.9 Type 2 diabetes mellitus without complications (principal); K59.00 Constipation, unspecified; E78.5 Hyperlipidemia, unspecified

== ENCOUNTER → 2025-05-15 13:55 | Outpatient (BNVA) | payer BC, SELFPAY | PROVIDERS: PCP Physician Assistant; Visit Provider Physician Assistant | DX: E11.9 Type 2 diabetes mellitus without complications (principal); K59.00 Constipation, unspecified; E78.5 Hyperlipidemia, unspecified | CPT/HCPCS: 83036 ==

== ENCOUNTER 2025-06-07 12:17 | Outpatient (AMB) | payer BC, SELFPAY ==
--- NOTE | 2025-06-07 12:21 | MHC.OFFVIS ---
Vital Signs 06/07/25 12:22 Height 6 ft 1 in Weight 317 lb BMI 41.8 BP 111/75 Blood Pressure Location Lt brachial Position Sitting Pulse 83 Intake Visit Reasons: Colonoscopy Screening Intake Note: Patient new consult for 1st pre Colonoscopy screening. Patient cc: acid reflux on and off. Hx of constipation with bloody stool. Denies any other GI issues. Cone Runner Required: No Accompanied by: Self / Same As Patient Allergies No Known Allergies Allergy (Mild, Verified 06/07/25 12:21) NONE Medication List - Last Reconciled 06/07/25 by Natalie Sharma CNP apixaban (Eliquis) 2.5 mg PO BID blood sugar diagnostic (FreeStyle Lite Strips) use daily As directed to check blood glucose blood-glucose meter (FreeStyle Lite Meter kit) Use daily As directed to check blood glucose cetirizine (Zyrtec) 10 mg PO DAILY cyanocobalamin (vitamin B-12) 1,000 mcg PO DAILY docusate sodium (Colace) 100 mg PO DAILY omeprazole 20 mg PO DAILY PRN tirzepatide (Mounjaro) 5 mg (0.5 mL) subcut QWEEK HPI HPI Colonoscopy Screening: Details: Patient is a 40-year-old male with PMH of diabetes, dyslipidemia, history of DVT on Eliquis. Referred by PCP for further evaluation of blood in stools. He reports one isolated episode of hematochezia four months ago that lasted a couple of days, which he attributes to severe constipation and straining. He notes the blood was mixed in the stool. He denies any associated abdominal pain, nausea, or vomiting. The patient has been taking Mounjaro for the past year for type 2 diabetes and weight loss, and he has experienced significant constipation since starting the medication, with stools being very hard. His PCP initially had him try another medication before starting Colace about a week and a half ago, which has improved his symptoms and made bowel movements easier. His Mounjaro use has led to a 117-pound weight loss and his A1c is now 5.1. The patient also has a history of gastroesophageal reflux disease and has been taking omeprazole for years. He has been taking it daily for the past two months per recommendation from cardiology for chest tightness, which has since resolved. He denies regurgitation or dysphagia. His past medical history is also significant for a deep vein thrombosis in his calf two years ago, for which he takes Eliquis. He has a follow-up appointment soon where he may be taken off the medication. He denies any known medication allergies and has never had anesthesia or sedation. Patient denies: fever/chills, n/v, appetite changes, regurgitation, dysphasia, unintentional wt loss. Social hx: -ETOH use -smokes marijuana, denies other recreational drug use -non-smoker - family hx as below -denies personal hx of CA - no prior anesthesia/sedation history. [facility] Medical History (Updated 06/07/25 @ 13:44 by Natalie Sharma CNP) Acid reflux Colon cancer screening Otitis externa Elevated homocysteine Right leg DVT Dyslipidemia Uncontrolled type 2 diabetes mellitus with hyperglycemia Family History Father Brain cancer Throat cancer Diabetes Social History Household Members: Significant Other Housing: House Housing Other:: 2 family house Alcohol intake: current Alcohol intake frequency: holidays/special occasions only Patient Tobacco Use Status: Never used Tobacco e-Cigarette/Vaping Use: Never Used Second Hand Smoke Exposure: Yes Substance Use Type: Marijuana Current occupational status: employed 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 Current occupational exposures/hazards: No Gender identity: Male Cognitive needs: No Hearing needs: No Vision needs: Yes (glasses) Review of Systems Const Reports as per HPI ENT Reports as per HPI Card Reports as per HPI Resp Reports as per HPI GI Reports as per HPI Reports as per HPI Physical Exam Vital Signs: Last Vital Signs Pulse 83 06/07/25 12:22 BP 111/75 06/07/25 12:22 BMI result Body Mass Index 41.8 Const General: healthy appearing, no acute distress and well developed Nutritional Appearance: average body habitus and obese Orientation/consciousness: patient oriented x3 HEENT Head: Yes normal to inspection, Yes normocephalic and Yes atraumatic Face and sinus: Yes normal facial exam Eyes General: appearance normal, both eyes and all related structures Neck Neck: Yes normal visual inspection Resp Effort & Inspection: normal respiratory effort, able to speak in complete sentences, no tracheal deviation and symmetric chest movement Cardio Jugular venous distension: no JVD Rate: regular rate Rhythm: regular rhythm Heart sounds: S1 normal heart sound present, S2 normal heart sound present, no gallops and no murmurs GI Inspection: Yes normal to inspection, No distended and Yes obesity Palpation (GI): Soft to palpation, not firm, nontender and No hepatosplenomegaly present Auscultation: normoactive bowel sounds Neuro General: patient oriented x3 Gait exam (Neuro): Normal gait present Psych Appearance: grossly normal Mental Status: mental status grossly normal Speech and movement: Normal speech and movement present Affect: normal affect Attitude: cooperative Thought process: Normal thought process present Thought content: Normal thought content present Insight: Good insight present (Psych) Judgement: Good judgement present (Psych) Assessment & Plan Assessment & Plan (1) Blood in stool: Code(s): K92.1 - Melena Category: Medical Plan: The single episode of bleeding is likely secondary to constipation and straining from Mounjaro use, possibly from a hemorrhoid or fissure. - Due to the bleeding and the patient's age being near screening guidelines, a colonoscopy is recommended to rule out other internal sources of bleeding and for colorectal cancer screening. Medications: -prescriptions for laxative tablets and MiraLax sent to pharmac ; instructions for Gatorade purchase and clear liquid diet given. Understands due to his constipation we will issue an extended prep- five days before your procedure, start taking 2 Dulcolax (bisacodyl) tablets at bedtime each night. - understands to hold Mounjaro 7 days prior to procedure. Eliquis will need to be adjusted if still taking, Nurse to review med holds per protocol. Patient educated on scheduling process, procedure preparation, including avoiding certain foods and ensuring clear liquid intake Advised on necessity for ride post-procedure due to sedation. (2) Acid reflux: Code(s): K21.9 - Gastro-esophageal reflux disease without esophagitis Category: Medical Qualifiers: Esophagitis presence: esophagitis presence not specified Qualified Code(s): K21.9 - Gastro-esophageal reflux disease without esophagitis Plan: The patient has a long-standing history of GERD and has been on omeprazole for years. - An upper endoscopy (EGD) is recommended to evaluate the esophagus given the chronic symptoms and long-term proton pump inhibitor use. (3) Constipation: Code(s): K59.00 - Constipation, unspecified Category: Medical Qualifiers: Constipation type: drug induced constipation Qualified Code(s): K59.03 - Drug induced constipation Plan: The constipation is a side effect of Mounjaro. - A modified bowel prep will be ordered for the colonoscopy due to the history of constipation. - The patient will be prescribed bisacodyl tablets (2 at bedtime) to start 5 days prior to the procedure, in addition to the standard MiraLax prep. Plan Follow-up after endoscopy or sooner as needed Time: I spent a total of 30 minutes on the date of encounter which includes: Preparing to see the patient (reviewed previous documentation, test results and medical history) Performing a medically appropriate exam and/or evaluation Ordering medications, tests, and procedures Documenting clinical information in the health record Orders: Referrals GI Procedure Notification K21.9 - Gastro-esophageal reflux disease without esophagitis, K92.1 - Melena Coding Level of Care Code New Pt New Pt Level 4 (58310) Patient Type New Diagnoses Blood in stool K92.1 Gastroesophageal reflux disease, unspecified whether esophagitis present K21.9 Esophagitis presence: esophagitis presence not specified Drug-induced constipation K59.03 Constipation type: drug induced constipation
[2025-06-07 12:22] VITALS: BP 111/75; PULSE 83; BMI 41.8
--- OUTSIDE RECORDS SUMMARY | 2025-06-07 17:51 | XMS_ITS | Clinical Summary ---
Author Organization [facility] Prior to 04/27/2024 Address [address] [place] [address] Care Team Providers Care Radiopharmacist Name Role Phone Bg Hernandez MD Primary Care Provider Unava ilable Allergies No known active allergies Medications Medication Sig Dispensed Refills Start Date End Date Status OMEPRAZOLE OR Take by mouth. 0 Active Ipratropium-Albuterol (DUONEB) 0.5-2.5 (3) MG/3ML SolutionIndications:Acute laryngotracheitis Inhale 3 mL into the lungs once for 1 dose. 1 mL 0 05/21/2019 Active azithromycin (ZITHROMAX) 250 MG tabletIndications:Acute laryngotracheitis Take as directed. 6 Tab 0 05/21/2019 Active ALBUTEROL SULFATE (PROAIR HFA) 108 (90 Base) MCG/ACT Aero SolnIndications:Acute laryngotracheitis Inhale 2 Puffs into the lungs every 6 hours as needed for Cough or Wheezing. 1 Inhaler 0 05/21/2019 Active ibuprofen (ADVIL,MOTRIN) 800 MG tablet Take 1 Tab by mouth every 8 hours as needed for Pain for up to 10 days. 30 Tab 2 03/07/2020 Active metformin (GLUCOPHAGE) 500 MG tablet Take 1 Tab by mouth Daily before dinner. 90 Tab 1 04/04/2020 Active Active Problems Problem Noted Date Prediabetes 03/11/2020 Morbid obesity 03/26/2019 Immunizations Name Administration Dates Next Due Tdap 03/26/2019 Family History Medical History Relation Name Comments Hiatal Hernia Father Pulmonary Nodu le Relation Name Status Comments Father Alive Maternal Grandfather Maternal Grandmother Alive Mother Alive Paternal Grandfather Paternal Grandmother Sister Alive Social History Tobacco Use Types Packs/Day Years Used Date Smoking Tobacco: Former Cigarettes 1 3 Smokeless Tobacco: Never Comments:Quit 2011. Was smok ing 0.5 ppd - 1 ppd x 3 years. Alcohol Use Standard Drinks/Week Comments Yes 0 (1 standard drink = 0.6 oz pure alcohol) 1-2 drinks max a week, every other week Sex Assigned at Date Recorded Not on file Last Filed Vital Signs Vital Sign Reading Time Taken Comments Blood Pressure 124/80 05/21/2019 10:03 AM EST Pulse 107 05/21/2019 10:03 AM EST Temperature 36.7 C (98 F) 05/21/2019 10:03 AM EST Respiratory Rate 16 05/21/2019 10:03 AM EST Oxygen Saturation 95% 05/21/2019 10:57 AM EST Inhaled Oxygen Concentration - - Weight 169.6 kg (374 lb) 05/21/2019 10:03 AM EST Height 185.4 cm (6' 1 ) 05/21/2019 10:03 AM EST Body Mass Index 49.34 05/21/2019 10:03 AM EST Plan of Treatment Health Maintenance Due Date Last Done Comments Covid-19 Vaccine (#1) 1983 BASELINE HEALTH EXAM 40-64 2023 03/26/2019 CHOLESTEROL SCREENING 03/26/2024 03/26/2019 BMI CHECK/ADVISE 06/27/2024 04/04/2020, 02/2020, 03/07/2020, Additional history exists INFLUENZA (#1) 2025 DTAP/TDAP/TD (2 - Td or Tdap) 03/26/2029 03/26/2019 PNEUMOCOCCAL VACCINE FOR HIG H RISK PATIENTS (#1) 01/29/2048 Care Teams Radiopharmacist Relationship Specialty Start Date End Date Bg Hernandez MD PCP - General Internal Medicine 03/20/19
--- OUTSIDE RECORDS SUMMARY | 2025-06-07 17:51 | XMS_ITS | Encounter Summary ---
Author Organization [employer] [facility] Prior to 04/27/2024 Address [address] [place] [address] Care Team Providers Care Mobile Nurse Name Role Phone Bg Hernandez MD Primary Care Provider Unava ilable Encounter Details Date Type Department Care Team Description 11/16/2020 Pt. Referral Request [facility] MyChart [address] [place] [address] Md Lisa Social History Tobacco Use Types [...] on filedocumented in this encounter Care Teams Mobile Nurse Relationship Specialty Start Date End Date Bg Hernandez MD PCP - General Internal Medicine 03/20/19 documented as of this encounter
--- OUTSIDE RECORDS SUMMARY | 2025-06-07 17:51 | XMS_ITS | Encounter Summary ---
Author Organization [facility] Prior to 04/27/2024 Address [address] [place] [address] Care Team Providers Care Station Manager Name Role Phone Bg Hernandez MD Primary Care Provider Unava ilable Encounter Details Date Type Department Care Team Description 11/16/2020 Pt. Non Urgent Medic al Question Adult Medicine [address] [address] Alondra Norman MD Social History Tobacco Use Types Packs/Day Years [...] on file documented as of this encounter Progress Notes * Sharon Garcia M.A. - 11/16/2020 11:46 AM EDT Lisa alfarog sent documented in this encounter Miscellaneous Notes * Telephone Encounter - Sharon Garcia M.A. - 11/16/2020 11:43 AM EDTFrom: Severo Blank To: Sherly Norman Sent: 11/16/2020 11:10 AM EDT Subject: Blood work Hi there. You wanted me to get another blood work test around 6 months from March we are at 7 months. When would u like this done documented in this encounter Plan of Treatment Not on file documented as of this encounter Visit Diagnoses Not on filedocumented in this encounter Care Teams Station Manager Relationship Specialty Start Date End Date Bg Hernandez MD PCP - General Internal Medicine 03/20/19 documented as of this encounter
== END 2025-06-07 13:14 | disposition home or self-care (01) ==
LOC: HO.HGI 12:18
PROVIDERS: PCP Physician Assistant; Visit Provider Nurse Practitioner Family
DX: K92.1 Melena (principal); K21.9 Gastro-esophageal reflux disease without esophagitis; K59.03 Drug induced constipation
CPT/HCPCS: 99204